=== PATIENT | female | born 1930 | race Caucasian/White ===

== ENCOUNTER 2019-04-16 12:36 | Inpatient (IN) | payer MEDICARE ==
[~2019-04-16] VITALS: Ht 154.9 cm; Wt 53.4 kg
[2019-04-16 14:05] VITALS: BP 154/79
[2019-04-16 15:11] LABS: BASO # 0.1 10^3/uL (0.0-0.2); BASO % 0.6 % (0.0-1.0); EOS % 0.2 % (0.0-3.0); HEMATOCRIT 38.5 % (36.0-47.0); HEMOGLOBIN 12.4 g/dl (12.0-15.5); LYMPH # 1.3 10^3/uL (1.5-5.0); MEAN CORPUSCULAR HEMOGLOBIN 30.5 pg (27.0-33.0); MEAN CORPUSCULAR HGB CONC 32.2 g/dl (32.0-36.5); MEAN CORPUSCULAR VOLUME 94.6 fl (80.0-96.0); MONO # 0.8 10^3/uL (0.0-0.8); MONO % 9.4 % (0.0-5.0); NEUTROPHILS # 6.5 10^3/uL (1.5-8.5); NEUTROPHILS % 74.5 % (36.0-66.0); PLATELET COUNT, AUTOMATED 353 10^3/uL (150-450); RED BLOOD COUNT 4.07 10^6/uL (4.00-5.40); WHITE BLOOD COUNT 8.7 10^3/uL (4.0-10.0)
[2019-04-16] MEDS ORDERED: VITA500C24 PO (15:12)
[2019-04-16] MEDS ORDERED: LOSA50TA88 PO (15:12)
[2019-04-16] MEDS ORDERED: METO50TA7 PO (15:12)
[2019-04-16] MEDS ORDERED: SYNT75TA PO (15:12)
[2019-04-16] MEDS ORDERED: SERT50TA29 PO (15:12)
[2019-04-16] MEDS ORDERED: SERT-141 PO (15:12)
[2019-04-16] MEDS ORDERED: TRIA37.53 PO (15:12)
[2019-04-16] MEDS ORDERED: NS 1,000 ML IV ONE (15:15)
--- NOTE | 2019-04-16 15:29 | HPEPDOC ---
General Date of Admission Apr 16, 2019 at 13:52 Date of Service: Apr 16, 2019 Chief Complaint The patient is a 88-year-old female admitted with a reason for visit of Acute Kidney Injury. Source: Patient, Family, RN/MD Exam Limitations: No limitations Timing/Duration: Getting worse Associated Symptoms: Loss of appetite, Malaise, Weakness History of Present Illness Patient is an 88 year old female transferred from [facility] ED, directly admitted per Dr. Barcenas. Pt is unable to provide the history due to some confusion and gives her sons permission to do so. She has felt unwell x 1 month. She has felt progressive general weakness and loss of appetite. Pt has also had some diarrhea on and off during this time; sometimes the stool is formed and other times it is watery. She has never had a colonoscopy. She denied abdominal pain. Son also noticed very little urine output from the pt. She had a CT with contrast of the abdomen and pelvis on Sunday due to the above Sx. She vomited in the evening after the CT. At 11pm last night she felt more unwell, worsening lethargy and confusion per her son. Son had to convince her to go to the ED today. While in the [facility] ED she had a CT w/out contrast which showed a right- sided obstructive uropathy, intestinal edema and fluid accumulation. She was also noted to have a Cr of 3.7 and elevated liver enzymes. ER doctor at [facility] spoke with Dr. Barcenas at [facility] who directly admitted the patient. Confirmed DNR/DNI with pt sons and they will provide the hospital with a copy of the MOLST form. Home Medications Scheduled Ascorbic Acid (Vitamin C) 500 Mg Capsule, 500 MG PO DAILY, (Reported) Levothyroxine Sodium (Synthroid) 75 Mcg Tablet, 75 MCG PO DAILY, (Reported) Magnesium Oxide (Magnesium Oxide) 400 Mg Tablet, 400 MG PO BID Metoprolol Tartrate (Metoprolol Tartrate) 50 Mg Tablet, 50 MG PO BID, (Reported) Potassium Chloride (Klor-Con M10) 10 Meq Tab.er.prt, 20 MEQ PO DAILY Sertraline HCl (Sertraline HCl) 50 Mg Tablet, 25 MG PO QHS, (Reported) Sertraline Hcl (Sertraline HCl) 50 Mg Tablet, 50 MG PO DAILY, (Reported) Allergies Coded Allergies: No Known Drug Allergies (Verified Allergy, Unknown, 04/16/19) Past Medical History Medical History HTN Depression Hypothyroidism Surgical History Cholecystectomy ARCHIE Left Nephrectomy Family History Significant Family History: Noncontributory Social History * Smoker: former Smoker (quit 25 years ago; 1PPD) Alcohol: Denies Drugs: denies Recent Travel/Sick Contacts: Denies: Recent travel A-FIB/[facility] A-FIB History Current/History of A-Fib/PAF?: No Current PO Anticoag Therapy: No Review of Systems Constitutional: Reports: Malaise, Weakness, Fatigue, Lethargy; Denies: Chills, Fever, Night Sweats Eyes: Denies: Pain ENT: Denies: Head Aches Skin: Denies: Rash Pulmonary: Denies: Dyspnea, Cough Cardiovascular: Denies: Chest Pain, Palpitations, Orthopnea, Lt Headedness Gastrointestinal: Reports: Nausea, Vomiting, Diarrhea; Denies: Abdominal Pain Genitourinary: Denies: Dysuria Musculoskeletal: Denies: Neck Pain, Back Pain, Joint Pain, Muscle Pain, Spasms Neurological: Reports: Confusion Psych: Reports: Mood Normal Physical Examination General Exam: Positive: Alert, Cooperative, No Acute Distress Eye Exam: Positive: Conjunctiva & lids normal; Negative: EOMI (6th nerve palsy) ENT Exam: Positive: Atraumatic, Pharynx Normal; Negative: Mucous membr. moist/pink (mucus membranes dry) Neck Exam: Positive: Supple; Negative: thyromegaly Chest Exam: Positive: Clear to auscultation, Normal air movement Heart Exam: Positive: Rate Normal, Murmurs (2/6 SM S1/S2 intact) Abdomen Exam: Positive: Normal bowel sounds, Soft, Hernia (RLQ) Extremity Exam: Negative: Clubbing, Cyanosis, Edema, Swelling Skin Exam: Positive: Nl turgor and temperature Neuro Exam: Positive: Normal Speech Psych Exam: Positive: Mood NL Vital Signs Vital Signs Date Time Temp Pulse Resp B/P (MAP) Pulse Ox O2 Delivery O2 Flow Rate FiO2 04/16/19 14:05 97.6 71 18 154/79 (104) 97 Room Air Laboratory Data Labs 24H Laboratory Tests 2 04/16/19 14:43: Immature Granulocyte % (Auto) 0.3, Neutrophils (%) (Auto) 74.5H, Lymphocytes (%) (Auto) 15.0L, Monocytes (%) (Auto) 9.4H, Eosinophils (%) (Auto) 0.2, Basophils (%) (Auto) 0.6, Neutrophils # (Auto) 6.5, Lymphocytes # (Auto) 1.3L, Monocytes # (Auto) 0.8, Eosinophils # (Auto) 0.0, Basophils # (Auto) 0.1, Nucleated Red Blood Cells % (auto) 0.0 CBC/BMP Laboratory Tests 04/16/19 14:43 Assessment/Plan Patient is an 88 year old female transferred from [facility] ED, directly admitted per Dr. Barcenas. Pt has a PMHx of HTN, solitary right kidney, Anxiety, hypothyroidism. 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 Pt is unable to provide the history due to some confusion and gives her sons permission to do so. She has felt unwell x 1 month. She has felt weakness and loss of appetite which has been worsening. Pt has also had diarrhea ongoing during this time; sometimes the stool is formed and other times it is watery. She has never had a colonoscopy. Pt also had very little urine output progressively worsening per her son. A CT with contrast of the abdomen and pelvis done on Sunday due to the above Sx. She vomited after the CT. At 11pm last night she became sick, worsening lethargy and confusion. Son had to c onvince her to go to the ED today. While in the [facility] ED she had a CT w/out contrast. Per Dr. Greenberg ([facility]): no CT visualized on this CT or CT on Sunday. Findings 04/16 "findings suggest obstruction of the right kidney at the level of the proximal right ureter and urologic consult suggested. Worsening inflammatory changes throughout the abdomen, pelvis with increasing free-fluid about the spleen. Wall thickening and inflammatory bowel disease is not excluded especially of the stomach and clinical correlation is advised for further eval. and mgmt." She was also noted to have a Cr of 3.7. Dr. Greenberg spoke with Dr. Barcenas at [facility] who directly admitted the patient. From the EMR, pt had an appointment with urology on 04/10 due to worsening hydronephrosis per CT 04/01/19. She was to be scheduled to have an urgent CT urogram to assess etiology. Cr. was 0.8 at that visit. Since being admitted to [facility], she has received fluid hydration. Repeat CMP showed Cr of 3.68. Pt catheterized with 200cc urine output. 1)Acute Kidney injury - stent placed in 2015 at [facility] [place] - possibly secondary to obstructive uropathy in a solitary kidney, IV contrast on Sunday and dehydration due to poor PO intake , intermittent diarrhea. - consult with nephrology & urology - Dr. Gautam will consult with Dr. Lockwood - Rocephin 1g given prophylactic - Cr. 3.68 - aggressive IV fluid replacement - pain control prn 2) Solitary kidney with obstructive uropathy - Dr. Luke consulted; will assess pt for possible stenting, requested pt is NPO after midnight - strict monitoring of I&O overnight - voided 200 cc with catheterization 3)HTN - Continue Metoprolol - Hold JONAS-I and HCTZ 4)Hypothyroidism - continue Synthroid 5) Anxiety - continue Zoloft 6) Elevated lipase - Amylase 120, Lipase 685 - no evidence of pancreatitis on CT w/out contrast abdomen - possibly 2/2 to ARF, poor PO intake x 1 month, ?HCTZ contributory - re-check Amylase & Lipase following appropriate hydration 7) Diarrhea, persistent - GI panel pending Plan / VTE VTE Prophylaxis Ordered?: Yes (Heparin ) Plan Diet: Make NPO (after midnight ) Activity: Bedrest Attending Note I have personally performed a face to face diagnostic evaluation on this patient. I have reviewed and agree with the care plan documented above. CATERINA FRANCOIS PA-C Apr 16, 2019 15:29 EDWARD GAUTAM MD Apr 23, 2019 06:18
[2019-04-16 15:36] LABS: ALBUMIN 3.2 GM/DL (3.2-5.2); BILIRUBIN,TOTAL 0.7 MG/DL (0.2-1.0); CALCIUM LEVEL 9.7 MG/DL (8.8-10.2); CREATININE FOR GFR 3.68 MG/DL (0.55-1.30); GLOMERULAR FILTRATION RATE 12.4 (>32); POTASSIUM SERUM 4.5 MEQ/L (3.5-5.1); TOTAL PROTEIN 6.5 GM/DL (6.4-8.2)
[2019-04-16 16:20] LABS: BILIRUBIN,DIRECT 0.3 MG/DL (0.0-0.2)
[2019-04-16] MEDS ORDERED: SODIUM CHLORIDE 0.9% 1000ML IV ONE (17:30)
[2019-04-16] MEDS: NS 1,000 ML IV SCH ×2 (17:45→20:19)
[2019-04-16] MEDS: cefTRIAXone SOD 1 GM in D5W MINI-BAG PLUS 50 ML IV SCH (17:54)
[2019-04-16] MEDS: HEPARIN SOD (PORCINE) 5000 UNITS/ML VIAL SQ SCH (20:19)
[2019-04-16] MEDS: SERTRALINE HCL 25 MG TABLET PO SCH (20:19)
[2019-04-16] MEDS: METOPROLOL TART 50 MG TAB PO SCH (20:19)
[2019-04-16 22:00] VITALS: BP 156/78
[2019-04-17] MEDS: LEVOTHYROXINE 75MCG TABLET (0.075MG) PO SCH (05:58)
[2019-04-17] MEDS: NS 1,000 ML IV SCH (05:58)
[2019-04-17 06:00] VITALS: BP 159/79
[2019-04-17 06:11] LABS: BASO % 0.4 % (0.0-1.0); EOS # 0.1 10^3/uL (0.0-0.5); EOS % 0.7 % (0.0-3.0); HEMATOCRIT 36.9 % (36.0-47.0); HEMOGLOBIN 11.9 g/dl (12.0-15.5); LYMPH # 0.9 10^3/uL (1.5-5.0); MEAN CORPUSCULAR HEMOGLOBIN 30.4 pg (27.0-33.0); MEAN CORPUSCULAR HGB CONC 32.2 g/dl (32.0-36.5); MEAN CORPUSCULAR VOLUME 94.4 fl (80.0-96.0); MONO # 0.7 10^3/uL (0.0-0.8); MONO % 9.4 % (0.0-5.0); NEUTROPHILS # 5.5 10^3/uL (1.5-8.5); NEUTROPHILS % 76.1 % (36.0-66.0); PLATELET COUNT, AUTOMATED 317 10^3/uL (150-450); RED BLOOD COUNT 3.91 10^6/uL (4.00-5.40); WHITE BLOOD COUNT 7.2 10^3/uL (4.0-10.0)
[2019-04-17 06:31] LABS: CALCIUM LEVEL 9.1 MG/DL (8.8-10.2); CREATININE FOR GFR 3.35 MG/DL (0.55-1.30); GLOMERULAR FILTRATION RATE 13.8 (>32); POTASSIUM SERUM 4.2 MEQ/L (3.5-5.1)
[2019-04-17] MEDS: METOPROLOL TART 50 MG TAB PO SCH ×2 (08:36→20:10)
[2019-04-17] MEDS: SERTRALINE HCL 50 MG TAB PO SCH (08:37)
--- NOTE | 2019-04-17 10:58 | SMCUROLCON ---
Urology Consultation General Date of Consultation 04/17/19 Reason For Consultation This patient is seen for Acute Kidney Injury. History of Present Illness The patient is a 88-year-old F with a past medical history of Left nephrectomy who was transferred from an outside hospital. She has been feeling unwell recently with diarrhea and lethargy the past 1 month. She had a CT with contrast at outside hospital and then presented with ARF. She had a repeat non contrast CT which showed possible right sided hydronephrosis. Repeat CT is pending after dimas placement. She had a dimas placed with return of appx 300cc of urine and has had steady urine output for the past 24 hours. She has a prior history of right sided stones treated in 2003. No gross hematuria. No flank pain. Past Medical History Medical History htn, nephrolithasis, dementia Surgical Hstory left nephrectomy in 1959 Family History Significant Family History: No pertinent family hx Social History * Smoker: non-smoker Alcohol: Denies Medications Current Medications Current Medications Medications (Trade) Dose Ordered Sig/Domingo Route PRN Reason Start Time Stop Time Status Last Admin Dose Admin Ceftriaxone Sodium 1 gm/ Dextrose 50 ml @ 100 mls/hr Q24H IV 04/16/19 18:00 04/16/19 17:54 Heparin Sodium (Porcine) (Heparin) 5,000 units Q12H SQ 04/16/19 21:00 Hold 04/16/19 20:19 Home Med (Med Rec Complete!) ASDIRECTED XX 04/16/19 15:45 04/16/19 15:41 DC Levothyroxine Sodium (Synthroid) 75 mcg DAILY@0600 PO 04/17/19 06:00 04/17/19 05:58 Metoprolol Tartrate (Lopressor) 50 mg BID PO 04/16/19 21:00 04/17/19 08:36 Sertraline HCl (Zoloft) 25 mg QHS PO 04/16/19 21:00 04/16/19 20:19 Sertraline HCl (Zoloft) 50 mg DAILY PO 04/17/19 09:00 Sodium Chloride 1,000 ml @ 75 mls/hr [id number] IV 04/16/19 17:45 04/17/19 10:37 DC 04/17/19 05:58 Allergies Allergies: Coded Allergies: No Known Drug Allergies (Verified Allergy, Unknown, 04/16/19) Review of Systems Constitutional: Denies: Fever, Chills, Sweats, Weakness, Malaise, Other Physical Examination Male Exam: No: Normal Genital Exam, Lesions, Edema, Erythema, Tenderness, Discharge, Mass, Hernia, Normal Prostate, Normal Sphincter Tone Vital Signs/I&O Vital Signs Date Time Temp Pulse Resp B/P (MAP) Pulse Ox O2 Delivery O2 Flow Rate FiO2 04/17/19 08:36 71 159/79 04/17/19 06:00 98.3 19 97 Room Air I&O- Last 24 Hours up to 6 AM 04/17/19 06:00 Intake Total 1820 ml Output Total 550 ml Balance 1270 ml Laboratory Data 24H Labs Laboratory Tests 2 04/16/19 14:43: Immature Granulocyte % (Auto) 0.3, Neutrophils (%) (Auto) 74.5H, Lymphocytes (%) (Auto) 15.0L, Monocytes (%) (Auto) 9.4H, Eosinophils (%) (Auto) 0.2, Basophils (%) (Auto) 0.6, Neutrophils # (Auto) 6.5, Lymphocytes # (Auto) 1.3L, Monocytes # (Auto) 0.8, Eosinophils # (Auto) 0.0, Basophils # (Auto) 0.1, Nucleated Red Blood Cells % (auto) 0.0, Anion Gap 14, Glomerular Filtration Rate 12.4L, Calcium Level 9.7, Total Bilirubin 0.7, Direct Bilirubin 0.3H, Aspartate Amino Transf (AST/SGOT) 18, Alanine Aminotransferase (ALT/SGPT) 15, Alkaline Phosphatase 91, Total Protein 6.5, Albumin 3.2, Albumin/Globulin Ratio 0.97L 04/16/19 16:06: Urine Color YELLOW, Urine Appearance CLEAR, Urine pH 5.0, Urine Specific [place] 1.019, Urine Protein NEGATIVE, Urine Glucose (UA) NEGATIVE, Urine Ketones NEGATIVE, Urine Blood 3+H, Urine Nitrite NEGATIVE, Urine Bilirubin NEGATIVE, Urine Urobilinogen 0.2, Urine Leukocyte Esterase 1+H, Urine WBC (Auto) 16H, Urine RBC (Auto) 59H, Urine Hyaline Casts (Auto) 0, Urine Bacteria (Auto) 1+H, Urine Squamous Epithelial Cells 3, Urine Amorphous Sediment SMALLH, Urine Sperm (Auto) 04/17/19 05:50: Immature Granulocyte % (Auto) 0.4, Neutrophils (%) (Auto) 76.1H, Lymphocytes (%) (Auto) 13.0L, Monocytes (%) (Auto) 9.4H, Eosinophils (%) (Auto) 0.7, Basophils (%) (Auto) 0.4, Neutrophils # (Auto) 5.5, Lymphocytes # (Auto) 0.9L, Monocytes # (Auto) 0.7, Eosinophils # (Auto) 0.1, Basophils # (Auto) 0.0, Nucleated Red Blood Cells % (auto) 0.0, Anion Gap 10, Glomerular Filtration Rate 13.8L, Calcium Level 9.1 CBC/BMP Laboratory Tests 04/16/19 14:43 04/17/19 05:50 Microbiology Microbiology 04/16/19 Urine Culture, Received Pending Plan 88 year old F with JAMIA, solitary kidney, ?hydronephrosis creatinine trending down with adequate urine output, ?due to obstructive uropathy Had a lengthy discussion with both sons regarding ureteral stent now vs watchful waiting since creatinine has trended down with good urine output. Sons would like watchful waiting. Would recommend repeat non contrast CT. Depending on creatinine/urine output tomorrow, may take to OR for Cysto/Stent placement. Diet now, NPO p MN. Dr Lacho [facility] [phone] LACHO LUKE M.D. Apr 17, 2019 10:58
--- NOTE | 2019-04-17 11:26 | REP ---
Clinical: Abdominal pain with nausea and vomiting. Technique: Axial noncontrast images from the lung bases to the pubic symphysis with coronal and sagittal re-formations. Comparison: None available. Findings: The patient is noted to be status post left nephrectomy. The right kidney is enlarged and demonstrates enhancement from presumed recent prior contrast enhanced examination. The kidney also demonstrates a significantly striated nephrogram pattern along with hydronephrosis and proximal hydroureter. These findings require correlation and are consistent with acute pyelonephritis and significantly poor function as well as suspected element of proximal ureteral obstruction (possible congenital UPJ obstruction). A moderate amount of ascites is appreciated throughout the abdomen and pelvis along with mesenteric adenopathy and mesenteric infiltration. These findings are nonspecific although sepsis cannot be excluded. There is evidence for suspected pneumobilia and prior cholecystectomy. Spleen, pancreas, and bilateral adrenal glands are relatively normal. The enteric system is without obstruction. Colonic and sigmoid diverticulosis noted. Moderate fat containing periumbilical hernia measures approximately 7.0 x 2.6 x 4.8 cm with a peritoneal defect of approximately 4.3 cm diameter. Pelvis demonstrates Encinas catheter in collapsed bladder and chronic myomatous changes to the uterus with calcified fibroids identified. No obvious free air. Atherosclerotic changes of the aorta and vasculature noted. Skeletal structures demonstrate osteopenia and degenerative changes along with left hip prosthesis. Small left pleural effusion and left basilar atelectasis noted. Impression: 1. Findings related to the right kidney as described above along with ascites and mesenteric stranding. Diagnosis includes pyelonephritis and sepsis. Right-sided hydronephrosis and proximal hydroureter may represent acute versus chronic change including possible UPJ obstruction. 2. Presumed to pneumobilia. 3. Small left pleural effusion and basilar atelectasis. 4. Further presumed chronic findings as described above. Electronically Signed by Zhang Ledesma MD 04/17/2019 11:19 A
[2019-04-17 14:00] VITALS: BP 176/89
--- NOTE | 2019-04-17 15:10 | IPNPDOC ---
Subjective Date Seen The patient was seen on 04/17/19. Subjective Chief Complaint/HPI Patient is an 88 year old female transferred from [facility] ED, directly admitted per Dr. Barcenas. Pt appears more confused than she did on admission and gives her sons permission to provide her Hx. She denied any new or worsening symptoms today. Pt sons arrived and we had a long discussion about urology consult earlier. They are satisfied with Dr. Luke's approach of watchful waiting over the next 24 hours due to Ms. Marroquin's age and her not being at her baseline at this time. They are able to relay the conversation they had with urology demonstrating they are making informed decisions on their mother's behalf. General: Reports: ROS Unobtainable Objective Physical Examination General Exam: Positive: Alert, Cooperative, No Acute Distress Eye Exam: Positive: Conjunctiva & lids normal, EOMI (6th nerve palsy) ENT Exam: Positive: Atraumatic, Pharynx Normal; Negative: Mucous membr. moist/pink (mucus membranes dry) Neck Exam: Positive: Supple; Negative: thyromegaly Chest Exam: Positive: Clear to auscultation, Normal air movement Heart Exam: Positive: Rate Normal, Murmurs (2/6 SM S1/S2 intact) Abdomen Exam: Positive: Normal bowel sounds, Soft, Hernia (RLQ) Extremity Exam: Negative: Clubbing, Cyanosis, Edema, Swelling Skin Exam: Positive: Nl turgor and temperature Neuro Exam: Positive: Normal Speech Psych Exam: Positive: Mood NL Assessment /Plan Assessment Patient is an 88 year old female transferred from [facility] ED, directly admitted per Dr. Barcenas. Pt has a PMHx of HTN, solitary right kidney, Anxiety, hypothyroidism. 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 Pt is unable to provide the history due to some confusion and gives her sons permission to do so. She has felt unwell x 1 month. She has felt weakness and loss of appetite which has been worsening. Pt has also had diarrhea ongoing during this time; sometimes the stool is formed and other times it is watery. She has never had a colonoscopy. Pt also had very little urine output progressively worsening per her son. A CT with contrast of the abdomen and pelvis done on Sunday due to the above Sx. She vomited after the CT. At 11pm last night she became sick, worsening lethargy and confusion. Son had to convince her to go to the ED today. While in the [facility] ED she had a CT w/out contrast. Per Dr. Greenberg ([place]): no CT visualized on this CT or CT on Sunday. Findings 04/16 "findings suggest obstruction of the right kidney at the level of the proximal right ureter and urologic consult suggested. Worsening inflammatory changes throughout the abdo men, pelvis with increasing free-fluid about the spleen. Wall thickening and inflammatory bowel disease is not excluded especially of the stomach and clinical correlation is advised for further eval. and mgmt." She was also noted to have a Cr of 3.7. Dr. Greenberg spoke with Dr. Barcenas at [facility] who directly admitted the patient. From the EMR, pt had an appointment with urology on 04/10 due to worsening hydronephrosis per CT 04/01/19. She was to be scheduled to have an urgent CT urogram to assess etiology. Cr. was 0.8 at that visit. Since being admitted to [facility], she has received fluid hydration. Repeat CMP showed Cr of 3.68. Pt catheterized with 200cc urine output. 1)Acute kidney injury - secondary to obstruction, IV contrast on Sunday and dehydration due to poor PO intake - H/o stent placement in 2015 at [facility] [place] per medical records - consult with nephrology & urology - Dr. Gautam will consult with Dr. Lockwood - Unrulyepcherelle 1g given prophylactic - Cr. 3.35 - Had IV fluid replacement. d/c today d/t volume overload, encourage PO intake - pain control prn . No NSAIDS - Hold JONAS-I and HCTZ 2) Solitary kidney with obstructive uropathy - Dr. Luke consulted; will assess pt for possible stenting, requested pt is NPO after midnight - strict monitoring of I&O overnight - voided 200 cc with catheterization - after consultation, sons decided they would like to wait overnight to see if their mother continues to improve and void urine, then reassess with urology in the morning. They are fully aware that she may end up requiring a stent. - returned to regular diet; NPO again after midnight 3)HTN - Continue Metoprolol - Hold JONAS-I and HCTZ 4)Hypothyroidism - continue Synthroid 5) Anxiety - continue Zoloft 6) Elevated Lipase - no evidence of pancreatitis on CT abdomen w/out contrast - possibly 2/2 to ARF, poor PO intake x 1 month, 7) Diarrhea, persistent - GI panel pending Plan/VTE VTE Prophylaxis Ordered?: Yes (Heparin ) VS, I&O, 24H, Fishbone Vital Signs/I&O Vital Signs Date Time Temp Pulse Resp B/P (MAP) Pulse Ox O2 Delivery O2 Flow Rate FiO2 04/17/19 08:36 71 159/79 04/17/19 06:00 98.3 19 97 Room Air I&O- Last 24 Hours up to 6 AM 04/17/19 06:00 Intake Total 1820 ml Output Total 550 ml Balance 1270 ml Laboratory Data 24H LABS Laboratory Tests 2 04/16/19 16:06: Urine Color YELLOW, Urine Appearance CLEAR, Urine pH 5.0, Urine Specific [place] 1.019, Urine Protein NEGATIVE, Urine Glucose (UA) NEGATIVE, Urine Ketones NEGATIVE, Urine Blood 3+H, Urine Nitrite NEGATIVE, Urine Bilirubin NEGATIVE, Urine Urobilinogen 0.2, Urine Leukocyte Esterase 1+H, Urine WBC (Auto) 16H, Urine RBC (Auto) 59H, Urine Hyaline Casts (Auto) 0, Urine Bacteria (Auto) 1+H, Urine Squamous Epithelial Cells 3, Urine Amorphous Sediment SMALLH, Urine Sperm (Auto) 04/17/19 05:50: Immature Granulocyte % (Auto) 0.4, Neutrophils (%) (Auto) 76.1H, Lymphocytes (%) (Auto) 13.0L, Monocytes (%) (Auto) 9.4H, Eosinophils (%) (Auto) 0.7, Basophils (%) (Auto) 0.4, Neutrophils # (Auto) 5.5, Lymphocytes # (Auto) 0.9L, Monocytes # (Auto) 0.7, Eosinophils # (Auto) 0.1, Basophils # (Auto) 0.0, Nucleated Red Blood Cells % (auto) 0.0, Anion Gap 10, Glomerular Filtration Rate 13.8L, Calcium Level 9.1 CBC/BMP Laboratory Tests 04/17/19 05:50 Microbiology Microbiology 04/16/19 Urine Culture, Received Pending Attending Note I have personally performed a face to face diagnostic evaluation on this patient. I have reviewed and agree with the care plan documented above. CATERINA FRANCOIS PA-C Apr 17, 2019 15:10 EDWARD GAUTAM MD Apr 23, 2019 12:03
[2019-04-17] MEDS: cefTRIAXone SOD 1 GM in D5W MINI-BAG PLUS 50 ML IV SCH (18:15)
[2019-04-17] MEDS: SERTRALINE HCL 25 MG TABLET PO SCH (20:10)
[2019-04-17] MEDS: HEPARIN SOD (PORCINE) 5000 UNITS/ML VIAL SQ SCH (20:10)
[2019-04-17] MEDS ORDERED: VANCOMYCIN HCL 1,000 MG, VIAL MATE ADAPTER 1 EACH in D5W 250 ML IV ONE (21:00)
[2019-04-17 22:00] VITALS: BP 140/63
[2019-04-18] VITALS (9 sets, daily range): BP systolic 124–164; BP diastolic 59–69
[2019-04-18 06:03] LABS: BASO # 0.1 10^3/uL (0.0-0.2); BASO % 0.7 % (0.0-1.0); EOS # 0.1 10^3/uL (0.0-0.5); EOS % 1.3 % (0.0-3.0); HEMATOCRIT 38.4 % (36.0-47.0); HEMOGLOBIN 12.4 g/dl (12.0-15.5); LYMPH % 11.5 % (24.0-44.0); MEAN CORPUSCULAR HEMOGLOBIN 30.5 pg (27.0-33.0); MEAN CORPUSCULAR HGB CONC 32.3 g/dl (32.0-36.5); MEAN CORPUSCULAR VOLUME 94.6 fl (80.0-96.0); MONO # 0.8 10^3/uL (0.0-0.8); MONO % 8.9 % (0.0-5.0); NEUTROPHILS # 6.9 10^3/uL (1.5-8.5); NEUTROPHILS % 77.2 % (36.0-66.0); PLATELET COUNT, AUTOMATED 328 10^3/uL (150-450); RED BLOOD COUNT 4.06 10^6/uL (4.00-5.40); WHITE BLOOD COUNT 8.9 10^3/uL (4.0-10.0)
[2019-04-18] MEDS: LEVOTHYROXINE 75MCG TABLET (0.075MG) PO SCH (06:05)
[2019-04-18 06:21] LABS: CALCIUM LEVEL 9.3 MG/DL (8.8-10.2); CREATININE FOR GFR 3.85 MG/DL (0.55-1.30); GLOMERULAR FILTRATION RATE 11.7 (>32); POTASSIUM SERUM 3.9 MEQ/L (3.5-5.1)
[2019-04-18] MEDS: SERTRALINE HCL 50 MG TAB PO SCH (09:00)
[2019-04-18] MEDS: HEPARIN SOD (PORCINE) 5000 UNITS/ML VIAL SQ SCH ×2 (09:00→20:18)
[2019-04-18] MEDS: METOPROLOL TART 50 MG TAB PO SCH ×2 (09:07→20:18)
[2019-04-18] MEDS ORDERED: PROPOFOL 200 MG/20 ML VIAL As Ordered ONE (10:42)
[2019-04-18] MEDS ORDERED: ONDANSETRON 4MG/2ML VIAL (J2405) As Ordered ONE (10:43)
[2019-04-18] MEDS ORDERED: LIDOCAINE 2% INJ 100 MG/5 ML SDV (FOR ANES.) As Ordered ONE (10:43)
--- NOTE | 2019-04-18 10:52 | IPNPDOC ---
Subjective Review oF Systems Chief Complaint The patient is a 88-year-old female admitted with a reason for visit of Acute Kidney Injury. Objective Physical Examination Heart Exam: Positive: Rate Normal, Murmurs (2/6 SM S1/S2 intact) Vital Signs/I&O Vital Signs Date Time Temp Pulse Resp B/P (MAP) Pulse Ox O2 Delivery O2 Flow Rate FiO2 04/18/19 09:07 79 142/64 04/18/19 06:00 97.9 17 93 Room Air I&O- Last 24 Hours up to 6 AM 04/18/19 05:59 Intake Total 900 ml Output Total 400 ml Balance 500 ml Laboratory Data Labs 24H Laboratory Tests 2 04/18/19 05:44: Immature Granulocyte % (Auto) 0.4, Neutrophils (%) (Auto) 77.2H, Lymphocytes (%) (Auto) 11.5L, Monocytes (%) (Auto) 8.9H, Eosinophils (%) (Auto) 1.3, Basophils (%) (Auto) 0.7, Neutrophils # (Auto) 6.9, Lymphocytes # (Auto) 1.0L, Monocytes # (Auto) 0.8, Eosinophils # (Auto) 0.1, Basophils # (Auto) 0.1, Nucleated Red Blood Cells % (auto) 0.0, Anion Gap 13, Glomerular Filtration Rate 11.7L, Calcium Level 9.3 CBC/BMP Laboratory Tests 04/18/19 05:44 Microbiology Microbiology 04/17/19 Blood Culture, Received Pending 04/16/19 Urine Culture - Final, Complete Escherichia Coli Assessment/Plan Date Seen The patient was seen on 04/18/19. Plan/VTE VTE Prophylaxis Ordered?: Yes (Heparin ) Plan Creatinine up to 3.8. Reviewed CT- Has retained contrast in kidney and evidence of hydronephrosis and hydroureter. Also with stranding consistent with pyelo. Ucx growing ESBL- discussed with primary team for antibiotic plan. Had lengthy discussion with sons/patient at bedside. Will proceed with cystoscopy with right ureteral stenting today in setting of obstruction and rising creatinine. Diet: Continue Current ANDREY ISABEL M.D. Apr 18, 2019 10:52
[2019-04-18] MEDS ORDERED: LIDOCAINE 2% 5ML JELLY UROJET As Ordered ONE (11:25)
[2019-04-18] MEDS ORDERED: ACETAMINOPHEN 1000MG 100ML IV BTL (OFIRMEV) (J0131 PER 10MG) As Ordered ONE (11:41)
--- NOTE | 2019-04-18 11:52 | ROOPDOC ---
[facility] Report Of Operation Report of Operation DATE OF PROCEDURE: 04/18/19 PREPROCEDURE DIAGNOSES: [right hydronephrosis, JAMIA]. POSTPROCEDURE DIAGNOSES: [same]. PROCEDURE: [Cystoscopy, right retrograde pyelogram, right ureteral stent placement]. SURGEON: [Andrey Isabel], AUTOMOTIVE SERVICE MANAGEMENT TEACHER: [none], ANESTHESIA: [MAC with local]. ESTIMATED BLOOD LOSS: Approximately [0] mL. COMPLICATIONS: [none ]. ANDREY ISABEL M.D. Apr 18, 2019 11:52
--- NOTE | 2019-04-18 11:53 | CR ---
DATE OF CONSULTATION: 04/17/2019 CONSULTATION REPORT FOR: Dr. Vicki Gautam CONSULTING PHYSICIAN: Dr. Katia Lockwood REASON FOR CONSULTATION: Nonoliguric acute renal failure in this patient with solitary kidney. CHIEF COMPLAINT: Nausea, vomiting and generalized malaise. HISTORY OF PRESENT ILLNESS: Florecita Marroquin is previously unknown to me. She is an 88-year-old female with a past medical history of solitary right kidney, hypertension, history of nephrolithiasis, Graves disease, anxiety. The patient had a left nephrectomy in the remote past when she was in her late 20s. History is obtained from chart review and from discussion with her two sons at the bedside. The patient lives alone and was apparently feeling poorly over the past couple of weeks. She was having decreased appetite, weakness, nausea, vomiting, and mild diarrhea. She had a CT with IV contrast on Sunday. The results of which are not available to me at present. Her symptoms persisted and she returned to the emergency room at [facility] and had a repeat CT scan on 04/16/2019, this time without contrast and that CT scan showed "obstruction of the right kidney at the level of the proximal right ureter, worsening inflammatory changes throughout abdomen and pelvis with increasing free fluid around the spleen, wall thickening and inflammatory bowel disease is not excluded." At [facility], she was noted to have a creatinine of 3.7 and she was subsequently transferred to [facility] for further evaluation and management. The patient had a Encinas catheter placed and she was started on IV fluids. Her creatinine marginally improved from 3.7 to 3.6 to 3.3. She is pending urologic evaluation. The patient is seen and examined this morning at the bedside. She complains of ongoing poor appetite and nausea. She denies any chest pain or shortness of breath. PAST MEDICAL AND PAST SURGICAL HISTORY: 1. Hypertension. 2. Solitary right kidney. 3. Depression. 4. Hypothyroidism status post cholecystectomy. 5. History of nephrolithiasis requiring urologic intervention in the past. 6. Left hip replacement. 7. Periumbilical hernia. ALLERGIES: No known drug allergies. HOME MEDICATIONS: - hydrochlorothiazide - triamterene - ascorbic acid - Synthroid 75 mcg by mouth daily - losartan 50 mg by mouth daily - metoprolol 50 mg by mouth twice a day - sertraline 50 mg in the morning and 25 mg in the evening FAMILY HISTORY: The patient denies a family history of end-stage renal disease. SOCIAL HISTORY: She has four son. She lives alone. She is an ex-smoker. There is no alcohol or drug use reported. REVIEW OF SYSTEMS: CONSTITUTIONAL: The patient reports generalized malaise, weakness, fatigue and lethargy. She denies fevers or chills. EYES: She denies visual changes or tearing. EARS, NOSE AND THROAT (ENT): She denies rhinorrhea or odynophagia. CARDIAC: She denies chest pain or palpitations or leg edema. PULMONARY: She denies shortness of breath or cough. GASTROINTESTINAL: She reports nausea, vomiting, diarrhea. GENITOURINARY: She reports decreased urine output. She denies dysuria or hematuria. SKIN: She denies any new rashes or pruritus. MUSCULOSKELETAL: She has a history of left hip replacement. She denies any acute gout or myalgias. NEUROLOGIC: She denies seizure or syncope. PSYCHIATRIC: She has a history of depression. ENDOCRINE: She has a history of hypothyroidism. Denies a history of diabetes. HEMATOLOGIC: Denies easy bleeding or bruising. Remainder of review of systems is negative or as per history of present illness (HPI). VITAL SIGNS: Temperature 96.7, pulse 68, respiratory rate 18, blood pressure 159/79, saturating 97% on room air. Intake yesterday was 1.8 liters, urine output thus far today is 600 mL. Weight in the bed scale today is not recorded. GENERAL: The patient is seen awake and alert. Family present at the bedside. She is interactive and conversational, cooperative with physical examination, answers simple questions appropriately, is oriented to person and place. Extraocular muscles are intact. Tongue is dry. Neck is supple. Jugular veins are not elevated. CARDIAC: S1, S2, regular rate and rhythm. No edema in the extremities. LUNGS: Clear to auscultation bilaterally. No crackle, rale or rhonchus. ABDOMEN: Soft. There is a hernia present in the right lower quadrant. There are bowel sounds. GENITOURINARY: Shows Encinas catheter with yellow urine. SKIN: Normal turgor and temperature. NEUROLOGIC: Interactive, conversational, cooperates with physical examination, oriented to person and place. LABORATORY DATA: Sodium 137, potassium 4.2, bicarbonate 18, BUN 51, creatinine 3.3, lipase 650. White count 7.2, hemoglobin 11.9. Urinalysis shows bacteria and WBCs and blood. Urine culture is pending. CT scan noncontrast 04/17/2019 shows status post left nephrectomy, right kidney is enlarged and there is hydronephrosis and also proximal hydroureter. There is moderate ascites in the abdomen, mesenteric adenopathy and mesenteric infiltration, small left pleural effusions and basilar atelectasis. INPATIENT MEDICATIONS: - ceftriaxone 1 gram IV daily - heparin 5000 units subcutaneous every 12 hours - levothyroxine 75 mcg by mouth daily - metoprolol 50 mg by mouth twice a day - sertraline 25 mg in the evening and 50 mg in the morning PROBLEMS: 1. Nonoliguric acute renal failure in this patient with solitary right kidney with hydronephrosis and hydroureter, recent IV contrast administration (dye-induced nephropathy), and home medication including losartan and hydrochlorothiazide/triamterene in the setting of nausea, vomiting, diarrhea and poor oral intake. The patient has multifactorial etiology of her renal failure which includes the previously-mentioned (obstructive uropathy, contrast exposure, angiotensin-receptor rock, diuretic, poor oral intake). Her creatinine has only marginally improved with IV fluid and Encinas catheter placement. Creatinine has come down from 3.7 to 3.3 and urine output still appears rather poor. I ordered a noncontrast CT scan of the abdomen today and her kidney was still lighting up with the IV contrast that she received on Sunday. Hence, the contrast is still in her system. Her urine analysis and the CT scan are also suspicious for ongoing upper urinary tract infection. I feel that she will likely need urologic intervention for the obstruction, especially given that she has a solitary kidney. There is no urgent dialysis needs at present. Primary team has already stopped the IV fluids which I feel is reasonable given that she did receive around 2 liters already and we do not want to risk volume overload in the setting of renal failure. She has been discontinued off of all nephrotoxic drugs. Urine culture is pending and blood culture has been requested. Depending on her renal function tomorrow, urology will decide about any procedure. 2. Possible pyelonephritis. Urinalysis did have bacteria and white blood cells (WBCs). Her CT scan did show some mesenteric adenopathy and mesenteric infiltration. The patient reports a couple-week history of nausea and vomiting and intermittent diarrhea. Urine culture is pending. She is already on empiric ceftriaxone. Blood cultures have been added and I am also giving her 1 gram of vancomycin. There is no leukocytosis. There is no fever and she is hemodynamically stable. 3. Solitary kidney with hydronephrosis. As mentioned above, on the CT scan done today, there is a proximal hydroureter along with hydronephrosis and there is still contrast in her system. She is probably going to require urologic intervention. 4. Hypertension. Blood pressures are acceptable at present. She is on metoprolol 50 mg by mouth twice daily. Please keep her off of angiotensin-converting enzyme (JONAS), angiotensin-receptor rock (ARB) and diuretic. I would allow blood pressure up to systolic 150s in view of her age and renal failure. Thank you for involving me in the care of Ms. Marroquin. I will be happy to follow her along with you. Plan of care was discussed in detail with both of her sons at the bedside.
[2019-04-18] MEDS ORDERED: SODIUM BICARBONATE 150 MEQ in D5W 1,000 ML IV SCH (12:00)
[2019-04-18] MEDS ORDERED: ONDANSETRON 4MG/2ML VIAL (J2405) IV PRN (12:15)
[2019-04-18] MEDS ORDERED: fentaNYL 100 MCG/2 ML INJECTION (J3010) IV PRN (12:15)
[2019-04-18] MEDS ORDERED: PERCOCET 5MG/325MG TAB PO PRN (12:15)
[2019-04-18] MEDS ORDERED: LR 1,000 ML IV SCH (12:15)
[2019-04-18] MEDS ORDERED: METOCLOPRAMIDE INJ 10MG/2ML VIAL (J2765) IV PRN (12:15)
--- NOTE | 2019-04-18 12:23 | REP ---
Clinical: Acute renal failure. Hydronephrosis. Technique: Intraoperative fluoroscopic imaging. Findings: Spot fluoroscopic images demonstrate marked right renal hydronephrosis and ureteral stent extending into the renal pelvis. Total fluoroscopic time 17 seconds. Impression: Marked hydronephrosis with proximal ureteral stent in the renal pelvis. Electronically Signed by Zhang Ledesma MD 04/18/2019 12:15 P
[2019-04-18] MEDS ORDERED: CONRAY-60 60% 50ML VIAL (Q9961) As Ordered ONE (13:46)
--- NOTE | 2019-04-18 13:46 | IPNPDOC ---
Subjective Date Seen The patient was seen on 04/18/19. Subjective Chief Complaint/HPI No diarrhea today or yesterday. no fever or chills, no chest pain or sob. no abdominal pain , nausea or vomiting. Had right ureteric stent placed today. Objective Physical Examination General Exam: Positive: Alert, Cooperative, No Acute Distress Eye Exam: Positive: Conjunctiva & lids normal; Negative: EOMI (6th nerve palsy) ENT Exam: Positive: Atraumatic, Pharynx Normal; Negative: Mucous membr. moist/pink (mucus membranes dry) Neck Exam: Positive: Supple; Negative: thyromegaly Chest Exam: Positive: Clear to auscultation, Normal air movement Heart Exam: Positive: Rate Normal, Murmurs (2/6 SM S1/S2 intact) Abdomen Exam: Positive: Normal bowel sounds, Soft, Hernia (RLQ) Extremity Exam: Negative: Clubbing, Cyanosis, Edema, Swelling Skin Exam: Positive: Nl turgor and temperature Neuro Exam: Positive: Normal Speech Psych Exam: Positive: Mood NL Assessment /Plan Assessment Patient is an 88 year old female transferred from [facility] ED, directly admitted per Dr. Barcenas. Pt has a PMHx of HTN, Grave's Dz. neha tary right kidney with right hydronephrosis seen in CT about 1 week ago, Anxiety. 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 Pt is unable to provide the history due to some confusion and gives her sons permission to do so. She has felt unwell x 1 month. She has felt weakness and loss of appetite which has been worsening. Pt has also had diarrhea ongoing during this time; sometimes the stool is formed and other times it is watery. She has never had a colonoscopy. Pt also had very little urine output progressively worsening per her son. A CT with contrast of the abdomen and pelvis done on Sunday as per urology order and since then she has worsened further. She vomited after the CT. At 11pm last night she became sick, worsening lethargy and confusion. Son had to convince her to go to the ED today. While in the [facility] ED she had a CT w/out contrast. Per Dr. Greenberg ([place]): no CT visualized on this CT or CT on Sunday. Findings 04/16"findings suggest obstruction of the right kidney at the level of the proximal right ureter and urologic consult suggested. Worsening inflammatory changes throughout the abdomen, pelvis with increasing free-fluid about the spleen. Wall thickening and inflammatory bowel disease is not excluded especially of the stomach and clinical correlation is advised for further eval. and mgmt." She was also noted to have a Cr of 3.7. Patient was transferred to [facility] for further evaluation and management. From the EMR, pt had an appointment with urology on 04/10 due to worsening hydronephrosis per CT 04/01/19. She was to be scheduled to have an urgent CT urogram to assess etiology. Cr. was 0.8 at that visit. Since being admitted to [facility], she has received fluid hydration. Repeat CMP showed Cr of 3.68. Pt catheterized with 200cc urine output. Acute kidney injury due to obstructive uropathy, contrast nephropathy on the back ground of ARBS and diuretics. 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 Solitary kidney with obstructive uropathy s/p right ureteric stent. UTI Ecoli in culture, continue ceftriaxone. HTN Continue Metoprolol Hold JONAS-I and HCTZ Hypothyroid continue Synthroid Anxiety continue Zoloft Elevated lipase probably due to Acute renal failure. no evidence of pancreatitis in the CT abdomen. Diarrhea chronic every other day about 2 times/ day. No diarrhea today or yesteday. GI panel pending Plan/VTE VTE Prophylaxis Ordered?: Yes (Heparin ) Plan Diet: Continue Current VS, I&O, 24H, Fishbone Vital Signs/I&O Vital Signs Date Time Temp Pulse Resp B/P (MAP) Pulse Ox O2 Delivery O2 Flow Rate FiO2 04/18/19 12:21 98.4 60 16 149/62 (91) 96 Room Air I&O- Last 24 Hours up to 6 AM 04/18/19 06:00 Intake Total 900 ml Output Total 300 ml Balance 600 ml Laboratory Data 24H LABS Laboratory Tests 2 04/18/19 05:44: Immature Granulocyte % (Auto) 0.4, Neutrophils (%) (Auto) 77.2H, Lymphocytes (%) (Auto) 11.5L, Monocytes (%) (Auto) 8.9H, Eosinophils (%) (Auto) 1.3, Basophils (%) (Auto) 0.7, Neutrophils # (Auto) 6.9, Lymphocytes # (Auto) 1.0L, Monocytes # (Auto) 0.8, Eosinophils # (Auto) 0.1, Basophils # (Auto) 0.1, Nucleated Red Blood Cells % (auto) 0.0, Anion Gap 13, Glomerular Filtration Rate 11.7L, Calcium Level 9.3 CBC/BMP Laboratory Tests 04/18/19 05:44 Microbiology Microbiology 04/17/19 Blood Culture, Received Pending 04/16/19 Urine Culture - Final, Complete Escherichia Coli EDWARD MENJIVAR MD Apr 18, 2019 13:45
[2019-04-18] MEDS: cefTRIAXone SOD 1 GM in D5W MINI-BAG PLUS 50 ML IV SCH (17:34)
[2019-04-18] MEDS: SERTRALINE HCL 25 MG TABLET PO SCH (20:18)
[2019-04-19 02:00] VITALS: BP 157/67
[2019-04-19 06:00] VITALS: BP 144/70
[2019-04-19] MEDS: LEVOTHYROXINE 75MCG TABLET (0.075MG) PO SCH (06:01)
[2019-04-19 06:22] LABS: BASO % 0.6 % (0.0-1.0); EOS # 0.1 10^3/uL (0.0-0.5); EOS % 2.2 % (0.0-3.0); HEMATOCRIT 34.7 % (36.0-47.0); HEMOGLOBIN 11.5 g/dl (12.0-15.5); LYMPH % 16.6 % (24.0-44.0); MEAN CORPUSCULAR HEMOGLOBIN 30.6 pg (27.0-33.0); MEAN CORPUSCULAR HGB CONC 33.1 g/dl (32.0-36.5); MEAN CORPUSCULAR VOLUME 92.3 fl (80.0-96.0); MONO # 0.7 10^3/uL (0.0-0.8); MONO % 10.7 % (0.0-5.0); NEUTROPHILS # 4.3 10^3/uL (1.5-8.5); NEUTROPHILS % 69.6 % (36.0-66.0); PLATELET COUNT, AUTOMATED 309 10^3/uL (150-450); RED BLOOD COUNT 3.76 10^6/uL (4.00-5.40); WHITE BLOOD COUNT 6.3 10^3/uL (4.0-10.0)
[2019-04-19 06:43] LABS: CALCIUM LEVEL 8.8 MG/DL (8.8-10.2); CREATININE FOR GFR 2.41 MG/DL (0.55-1.30); GLOMERULAR FILTRATION RATE 20.1 (>32); POTASSIUM SERUM 2.9 MEQ/L (3.5-5.1)
[2019-04-19] MEDS ORDERED: POTASSIUM CHLORIDE 10 MEQ SR TABLET PO ONE (06:45)
[2019-04-19] MEDS ORDERED: SODIUM CHLORIDE 0.9% 1000ML IV ONE (06:45)
[2019-04-19] MEDS: HEPARIN SOD (PORCINE) 5000 UNITS/ML VIAL SQ SCH ×2 (08:12→20:27)
[2019-04-19] MEDS: SERTRALINE HCL 50 MG TAB PO SCH (08:12)
[2019-04-19] MEDS: METOPROLOL TART 50 MG TAB PO SCH ×2 (08:13→20:26)
--- NOTE | 2019-04-19 11:23 | IPNPDOC ---
Subjective Date Seen The patient was seen on 04/19/19. Subjective Chief Complaint/HPI Overall feeling better today. No nausea or vomiting did have loose stools yesterday. Good urine output. She tells me she may be able to eat a little breakfast. Objective Physical Examination General Exam: Positive: Alert, Cooperative, No Acute Distress Eye Exam: Positive: Conjunctiva & lids normal, EOMI (6th nerve palsy) ENT Exam: Positive: Atraumatic, Pharynx Normal; Negative: Mucous membr. moist/pink (mucus membranes dry) Neck Exam: Positive: Supple; Negative: thyromegaly Chest Exam: Positive: Clear to auscultation, Normal air movement Heart Exam: Positive: Rate Normal, Murmurs (2/6 SM S1/S2 intact) Abdomen Exam: Positive: Normal bowel sounds, Soft, Hernia (RLQ) Extremity Exam: Negative: Clubbing, Cyanosis, Edema, Swelling Skin Exam: Positive: Nl turgor and temperature Neuro Exam: Positive: Normal Speech Psych Exam: Positive: Mood NL Assessment /Plan Assessment Patient is an 88 year old female transferred from [facility] ED, directly admitted per Dr. Barcenas. Pt has a PMHx of HTN, Grave's Dz. solitary right kidney with right hydronephrosis seen in CT about 1 week ago, Anxiety. 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 Pt is unable to provide the history due to some confusion and gives her sons permission to do so. She has felt unwell x 1 month. She has felt weakness and loss of appetite which has been worsening. Pt has also had diarrhea ongoing during this time; sometimes the stool is formed and other times it is watery. She has never had a colonoscopy. Pt also had very little urine output progressively worsening per her son. A CT with contrast of the abdomen and p elizabeth done on Sunday as per urology order and since then she has worsened further. She vomited after the CT. At 11pm last night she became sick, worsening lethargy and confusion. Son had to convince her to go to the ED today. While in the [facility] ED she had a CT w/out contrast. Per Dr. Greenberg ([place]): no CT visualized on this CT or CT on Sunday. Findings 04/16"findings suggest obstruction of the right kidney at the level of the proximal right ureter and urologic consult suggested. Worsening inflammatory changes throughout the abdomen, pelvis with increasing free-fluid about the spleen. Wall thickening and inflammatory bowel disease is not excluded especially of the stomach and clinical correlation is advised for further eval. and mgmt." She was also noted to have a Cr of 3.7. Patient was transferred to [facility] for further evaluation and management. From the EMR, pt had an appointment with urology on 04/10 due to worsening hydronephrosis per CT 04/01/19. She was to be scheduled to have an urgent CT urogram to assess etiology. Cr. was 0.8 at that visit. Since being admitted to [facility], she has received fluid hydration. Repeat CMP showed Cr of 3.68. Pt catheterized with 200cc urine output. Acute kidney injury due to obstructive uropathy, contrast nephropathy on the back ground of ARBS and diuretics. S/P cysto and right ureteral stent placement on 04/18/19 Creatinine has improved significantly today. 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 Solitary kidney with obstructive uropathy s/p right ureteric stent. improving renal function. UTI Ecoli in culture, continue ceftriaxone. HTN Continue Metoprolol Hold JONAS-I and HCTZ Hypothyroid continue Synthroid Anxiety continue Zoloft Elevated lipase probably due to Acute renal failure. no evidence of pancreatitis in the CT abdomen. Diarrhea chronic every other day about 2 times/ day. No diarrhea today or yesterday. GI panel sent Plan/VTE VTE Prophylaxis Ordered?: Yes (Heparin ) Plan Diet: Continue Current VS, I&O, 24H, Fishbone Vital Signs/I&O Vital Signs Date Time Temp Pulse Resp B/P (MAP) Pulse Ox O2 Delivery O2 Flow Rate FiO2 04/19/19 08:13 70 152/72 04/19/19 06:00 98.3 16 92 Room Air I&O- Last 24 Hours up to 6 AM 04/19/19 06:00 Intake Total 955 ml Output Total 2925 ml Balance -1970 ml Laboratory Data 24H LABS Laboratory Tests 2 04/19/19 05:44: Immature Granulocyte % (Auto) 0.3, Neutrophils (%) (Auto) 69.6H, Lymphocytes (%) (Auto) 16.6L, Monocytes (%) (Auto) 10.7H, Eosinophils (%) (Auto) 2.2, Basophils (%) (Auto) 0.6, Neutrophils # (Auto) 4.3, Lymphocytes # (Auto) 1.0L, Monocytes # (Auto) 0.7, Eosinophils # (Auto) 0.1, Basophils # (Auto) 0.0, Nucleated Red Blood Cells % (auto) 0.0, Anion Gap 11, Glomerular Filtration Rate 20.1L, Calcium Level 8.8 CBC/BMP Laboratory Tests 04/19/19 05:44 Microbiology Microbiology 04/19/19 Gastrointestinal Tract Panel (PCR), Received Pending 04/17/19 Blood Culture - Preliminary, Resulted No growth after 24 hours . All specim... 04/16/19 Urine Culture - Final, Complete Escherichia Coli EDWARD MENJIVAR MD Apr 19, 2019 11:23
[2019-04-19 14:00] VITALS: BP 143/70
[2019-04-19] MEDS: cefTRIAXone SOD 1 GM in D5W MINI-BAG PLUS 50 ML IV SCH (17:42)
[2019-04-19 18:00] VITALS: BP 133/72
--- NOTE | 2019-04-19 18:40 | IPNPDOC ---
Subjective Review oF Systems Chief Complaint The patient is a 88-year-old female admitted with a reason for visit of Acute Kidney Injury. Events since Last Encounter feeling better after stent. Objective Physical Examination Heart Exam: Positive: Rate Normal, Murmurs (2/6 SM S1/S2 intact) Vital Signs/I&O Vital Signs Date Time Temp Pulse Resp B/P (MAP) Pulse Ox O2 Delivery O2 Flow Rate FiO2 04/19/19 18:00 98.0 65 18 133/72 (92) 95 Room Air I&O- Last 24 Hours up to 6 AM 04/19/19 06:00 Intake Total 955 ml Output Total 2925 ml Balance -1970 ml Laboratory Data Labs 24H Laboratory Tests 2 04/19/19 05:44: Immature Granulocyte % (Auto) 0.3, Neutrophils (%) (Auto) 69.6H, Lymphocytes (%) (Auto) 16.6L, Monocytes (%) (Auto) 10.7H, Eosinophils (%) (Auto) 2.2, Basophils (%) (Auto) 0.6, Neutrophils # (Auto) 4.3, Lymphocytes # (Auto) 1.0L, Monocytes # (Auto) 0.7, Eosinophils # (Auto) 0.1, Basophils # (Auto) 0.0, Nucleated Red Blood Cells % (auto) 0.0, Anion Gap 11, Glomerular Filtration Rate 20.1L, Calcium Level 8.8 CBC/BMP Laboratory Tests 04/19/19 05:44 Microbiology Microbiology 04/19/19 Gastrointestinal Tract Panel (PCR) - Final, Complete 04/17/19 Blood Culture - Preliminary, Resulted No growth after 24 hours . All specim... 04/16/19 Urine Culture - Final, Complete Escherichia Coli Assessment/Plan Date Seen The patient was seen on 04/19/19. Plan/VTE VTE Prophylaxis Ordered?: Yes (Heparin ) Plan s/p cystoscopy with right ureteral stent for obstructive hydronephrosis on 04/18/19 Creatinine improving, urine output improved. Feeling better Trend creatinine and follow up with outpatient urologist. DREW Encinas per primary team. Diet: Continue Current ANDREY ISABEL M.D. Apr 19, 2019 18:40
[2019-04-19] MEDS: SERTRALINE HCL 25 MG TABLET PO SCH (20:26)
[2019-04-19 22:00] VITALS: BP 130/56
[2019-04-20 02:00] VITALS: BP 130/56
[2019-04-20] MEDS: LEVOTHYROXINE 75MCG TABLET (0.075MG) PO SCH (05:40)
[2019-04-20 06:00] VITALS: BP 134/59
[2019-04-20 06:20] LABS: BASO # 0.1 10^3/uL (0.0-0.2); BASO % 0.7 % (0.0-1.0); EOS # 0.2 10^3/uL (0.0-0.5); EOS % 2.6 % (0.0-3.0); HEMATOCRIT 38.3 % (36.0-47.0); HEMOGLOBIN 12.6 g/dl (12.0-15.5); LYMPH # 1.7 10^3/uL (1.5-5.0); MEAN CORPUSCULAR HEMOGLOBIN 30.9 pg (27.0-33.0); MEAN CORPUSCULAR HGB CONC 32.9 g/dl (32.0-36.5); MEAN CORPUSCULAR VOLUME 93.9 fl (80.0-96.0); MONO # 0.7 10^3/uL (0.0-0.8); MONO % 9.6 % (0.0-5.0); NEUTROPHILS % 64.8 % (36.0-66.0); PLATELET COUNT, AUTOMATED 342 10^3/uL (150-450); RED BLOOD COUNT 4.08 10^6/uL (4.00-5.40); WHITE BLOOD COUNT 7.7 10^3/uL (4.0-10.0)
[2019-04-20 06:41] LABS: CALCIUM LEVEL 8.6 MG/DL (8.8-10.2); CREATININE FOR GFR 1.25 MG/DL (0.55-1.30); POTASSIUM SERUM 2.9 MEQ/L (3.5-5.1)
[2019-04-20] MEDS ORDERED: POTASSIUM CHLORIDE 10 MEQ SR TABLET PO ONE (08:00)
[2019-04-20] MEDS: SERTRALINE HCL 50 MG TAB PO SCH (08:05)
[2019-04-20] MEDS: HEPARIN SOD (PORCINE) 5000 UNITS/ML VIAL SQ SCH ×2 (08:05→20:25)
--- NOTE | 2019-04-20 08:25 | IPNPDOC ---
Subjective Date Seen The patient was seen on 04/20/19. Subjective Chief Complaint/HPI feeling better. No nausea , no diarrehea. seen sitting up in chair eating breakfast. will request PT evaluation. Objective Physical Examination General Exam: Positive: Alert, Cooperative, No Acute Distress Eye Exam: Positive: Conjunctiva & lids normal, EOMI (6th nerve palsy) ENT Exam: Positive: Atraumatic, Pharynx Normal; Negative: Mucous membr. moist/pink (mucus membranes dry) Neck Exam: Positive: Supple; Negative: thyromegaly Chest Exam: Positive: Clear to auscultation, Normal air movement Heart Exam: Positive: Rate Normal, Murmurs (2/6 SM S1/S2 intact) Abdomen Exam: Positive: Normal bowel sounds, Soft, Hernia (RLQ) Extremity Exam: Negative: Clubbing, Cyanosis, Edema, Swelling Skin Exam: Positive: Nl turgor and temperature Neuro Exam: Positive: Normal Speech Psych Exam: Positive: Mood NL Assessment /Plan Assessment Patient is an 88 year old female transferred from [facility] ED, directly admitted per Dr. Barcenas. Pt has a PMHx of HTN, Grave's Dz. solitary right kidney with right hydronephrosis seen in CT about 1 week ago, Anxiety. 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 Pt is unable to provide the history due to some confusion and gives her sons permission to do so. She has felt unwell x 1 month. She has felt weakness and loss of appetite which has been worsening. Pt has also had diarrhea ongoing during this time; sometimes the stool is formed and other times it is watery. She has never had a colonoscopy. Pt also had very little urine output progressively worsening per her son. A CT with contrast of the abdomen and pelvis done on Sunday as per urology order and since then she has worsened further. She vomited after the CT. At 11pm last night she became sick, worsening lethargy and confusion. Son had to convince her to go to the ED today. While in the [facility] ED she had a CT w/out contrast. Per Dr. Greenberg ([place]): no CT visualized on this CT or CT on Sunday. Findings 04/16"findings suggest obstruction of the right kidney at the level of the proximal right ureter and urologic consult suggested. Worsening inflammatory changes throughout the abdome n, pelvis with increasing free-fluid about the spleen. Wall thickening and inflammatory bowel disease is not excluded especially of the stomach and clinical correlation is advised for further eval. and mgmt." She was also noted to have a Cr of 3.7. Patient was transferred to [facility] for further evaluation and management. From the EMR, pt had an appointment with urology on 04/10 due to worsening hy dronephrosis per CT 04/01/19. She was to be scheduled to have an urgent CT urogram to assess etiology. Cr. was 0.8 at that visit. Since being admitted to [facility], she has received fluid hydration. Repeat CMP showed Cr of 3.68. Pt catheterized with 200cc urine output. Acute kidney injury due to obstructive uropathy, contrast nephropathy on the back ground of ARBS and diuretics. S/P cysto and right ureteral stent placement on 04/18/19 Creatinine normalized today down to 1.25 Solitary kidney with obstructive uropathy s/p right ureteric stent with improved renal function UTI Ecoli in culture, continue ceftriaxone. HTN Continue Metoprolol Hold JONAS-I and HCTZ Hypothyroid continue Synthroid Anxiety continue Zoloft Elevated lipase probably due to Acute renal failure. no evidence of pancreatitis in the CT abdomen. Diarrhea chronic every other day about 2 times/ day. No diarrhea today or yesterday. GI panel sent Plan/VTE VTE Prophylaxis Ordered?: Yes (Heparin ) Plan Diet: Continue Current VS, I&O, 24H, Fishbone Vital Signs/I&O Vital Signs Date Time Temp Pulse Resp B/P (MAP) Pulse Ox O2 Delivery O2 Flow Rate FiO2 04/20/19 06:00 98.7 65 16 134/59 (84) 93 Room Air I&O- Last 24 Hours up to 6 AM 04/20/19 06:00 Intake Total 3490 ml Output Total 1975 ml Balance 1515 ml Laboratory Data 24H LABS Laboratory Tests 2 04/20/19 05:59: Immature Granulocyte % (Auto) 0.3, Neutrophils (%) (Auto) 64.8, Lymphocytes (%) (Auto) 22.0L, Monocytes (%) (Auto) 9.6H, Eosinophils (%) (Auto) 2.6, Basophils (%) (Auto) 0.7, Neutrophils # (Auto) 5.0, Lymphocytes # (Auto) 1.7, Monocytes # (Auto) 0.7, Eosinophils # (Auto) 0.2, Basophils # (Auto) 0.1, Nucleated Red Blood Cells % (auto) 0.0, Anion Gap 10, Glomerular Filtration Rate 43.0, Calcium Level 8.6L CBC/BMP Laboratory Tests 04/20/19 05:59 Microbiology Microbiology 04/19/19 Gastrointestinal Tract Panel (PCR) - Final, Complete 04/17/19 Blood Culture - Preliminary, Resulted No Growth after 48 hours. All Specime... 04/16/19 Urine Culture - Final, Complete Escherichia Coli EDWARD MENJIVAR MD Apr 20, 2019 08:25
[2019-04-20] MEDS: METOPROLOL TART 50 MG TAB PO SCH ×2 (08:29→20:24)
[2019-04-20 08:52] LABS: MAGNESIUM LEVEL 1.3 MG/DL (1.8-2.4); PHOSPHORUS LEVEL 2.3 MG/DL (2.5-4.9)
[2019-04-20] MEDS: POTASSIUM CHLORIDE 10 MEQ SR TABLET PO SCH (10:34)
[2019-04-20] MEDS: K-PHOS ORIGINAL (POT.ACID PHOSPHATE) 500MG TAB PO SCH ×2 (10:59→20:24)
[2019-04-20] MEDS ORDERED: MAG SULF 1GM/100ML (MAG RUN) 1 GM in IV 1 EA IV ONE (11:00)
[2019-04-20 14:00] VITALS: BP 144/58
[2019-04-20] MEDS: cefTRIAXone SOD 1 GM in D5W MINI-BAG PLUS 50 ML IV SCH (17:05)
[2019-04-20 18:00] VITALS: BP 130/60
[2019-04-20] MEDS: SERTRALINE HCL 25 MG TABLET PO SCH (20:25)
[2019-04-20 22:00] VITALS: BP 141/58
[2019-04-21] MEDS: LEVOTHYROXINE 75MCG TABLET (0.075MG) PO SCH (05:36)
[2019-04-21 06:00] VITALS: BP 150/66
[2019-04-21 06:16] LABS: BASO % 0.5 % (0.0-1.0); EOS # 0.1 10^3/uL (0.0-0.5); EOS % 0.8 % (0.0-3.0); HEMATOCRIT 35.2 % (36.0-47.0); HEMOGLOBIN 11.7 g/dl (12.0-15.5); LYMPH # 1.4 10^3/uL (1.5-5.0); LYMPH % 17.4 % (24.0-44.0); MEAN CORPUSCULAR HEMOGLOBIN 30.7 pg (27.0-33.0); MEAN CORPUSCULAR HGB CONC 33.2 g/dl (32.0-36.5); MEAN CORPUSCULAR VOLUME 92.4 fl (80.0-96.0); MONO # 0.7 10^3/uL (0.0-0.8); MONO % 9.2 % (0.0-5.0); NEUTROPHILS # 5.6 10^3/uL (1.5-8.5); NEUTROPHILS % 71.7 % (36.0-66.0); PLATELET COUNT, AUTOMATED 316 10^3/uL (150-450); RED BLOOD COUNT 3.81 10^6/uL (4.00-5.40); WHITE BLOOD COUNT 7.8 10^3/uL (4.0-10.0)
[2019-04-21 06:35] LABS: BLOOD UREA NITROGEN 15 MG/DL (7-18); CALCIUM LEVEL 8.1 MG/DL (8.8-10.2); CARBON DIOXIDE LEVEL 24 MEQ/L (21-32); CHLORIDE LEVEL 103 MEQ/L (98-107); CREATININE FOR GFR 0.86 MG/DL (0.55-1.30); GLOMERULAR FILTRATION RATE > 60.0 (>32); GLUCOSE, FASTING 84 MG/DL (70-100); POTASSIUM SERUM 3.4 MEQ/L (3.5-5.1); SODIUM LEVEL 136 MEQ/L (136-145)
[2019-04-21 07:16] LABS: MAGNESIUM LEVEL 1.2 MG/DL (1.8-2.4); PHOSPHORUS LEVEL 1.9 MG/DL (2.5-4.9)
--- NOTE | 2019-04-21 07:30 | IPN ---
DATE: 04/20/2019 SUBJECTIVE: The patient was seen and examined at the bedside today morning. She is afebrile, hemodynamically stable. The patient was actually sleepy today morning. Her renal function continues to improve, creatinine has come down to 1.25. She still has an indwelling Encinas catheter and urine in the bag is still blood tinged. OBJECTIVE: Vital signs: Temperature is 97.6 degrees Fahrenheit, blood pressure 144/58, pulse is 71, respiratory rate of 18, saturating 96% on room air. Intake and output: Urine output recorded is 1.8 liters yesterday, 1.2 liters so far today since overnight. Weight in the bed scale is not available. PHYSICAL EXAMINATION: General: The patient is laying in the bed sleeping at this time. No apparent distress. Head and neck exam: Head is normocephalic and atraumatic and there is no JVD noted. Cardiovascular: S1, S2, regular rate. No edema of the bilateral lower extremities. Respiratory: Chest is clear to auscultation bilaterally. Bilateral equal air entry. No rales or rhonchi. Abdomen: Soft, positive bowel sounds. Nontender. Genitourinary: She has an indwelling Encinas catheter. Urine in the bag is blood tinged. Musculoskeletal: No clubbing or cyanosis. ASSOCIATE PASTOR: The patient is sleeping at this time. Otherwise she has no focal deficit. LABORATORY REVIEW: CBC showed WBC 7.7, hemoglobin 12.6, platelets of 342. BMP showed sodium 139, potassium 2.9, chloride 106, bicarbonate 23, BUN 24, creatinine is 1.25, it was 2.4 yesterday, calcium 8.6, phosphorus 2.3, magnesium is 1.3. CURRENT INPATIENT MEDICATIONS: The patient continues to be on IV ceftriaxone, Macrobid 1 gram IV times one dose was ordered today. She was also given potassium chloride 40 mEq one dose in the morning. She has also been started on K-Phos 1 gram by mouth twice a day. No other change in the medications today as compared with yesterday. ASSESSMENT/PLAN: 1. Acute kidney injury superimposed on chronic kidney disease. It was secondary to dehydration, volume depletion, IV contrast dye and hydronephrosis of the solitary functioning kidney. The patient got retrograde pyelogram. Obstruction is relieved. Renal function is significantly getting better. 2. E. coli urinary tract infection. The patient had pyelonephritis of the solitary functioning kidney because of obstruction. Continue the ceftriaxone. 3. Hypokalemia. The patient has persistent hypokalemia because of postobstructive diuresis and because of improvement in the metabolic acidosis. The patient was already given potassium chloride in the morning and she will get another dose in the afternoon. 4. Hypomagnesemia. The patient was already given magnesium 1 gram IV. 5. Hypophosphatemia. The patient was started on K-Phos. Once her diet intake improves her phosphorus level will get better. 6. Hypertension. Continue current dose of metoprolol 50 mg by mouth twice a day. Avoid use of JONAS inhibitors at this time.
--- NOTE | 2019-04-21 07:56 | RO ---
DATE OF PROCEDURE: 04/18/2019 PREPROCEDURE DIAGNOSIS: Right hydronephrosis with acute kidney injury. POSTPROCEDURE DIAGNOSIS: Right hydronephrosis with acute kidney injury. PROCEDURE: Cystoscopy, right retrograde pyelography with intraoperative interpretation, right ureteral stent placement. SURGEON: Dr. Lcaho Luke CHANNEL ROUGHER: None. ANESTHESIA: Monitored anesthesia care (MAC) with local. IV FLUID: Crystalloid. SPECIMENS: None. DRAINS: 6-Cymro multi-length right ureteral stent and a 16-Cymro Encinas. COMPLICATIONS: None. CONDITION: Stable to post-anesthesia care unit (PACU). INDICATIONS FOR PROCEDURE: The patient is an 88-year-old female with a solitary right kidney who presented to the hospital with right-sided hydronephrosis as well as acute kidney injury with a creatinine of 3.6. A Encinas catheter was placed with adequate urine output. She had received IV contrast approximately 1 week prior, and there was some concern for intrinsic renal dysfunction not related to hydronephrosis. Therefore, we waited a period of [address] scan, which re-demonstrated right-sided hydronephrosis. However, her creatinine did rise to 3.8 this morning, and after a lengthy discussion with the sons and patient, they decided to proceed to the operating room for right ureteral stent placement with the hope of decompression of the collecting system to see if the renal function will improve. DESCRIPTION OF PROCEDURE: The patient was identified in the preop holding area as herself, informed consent was obtained from the son after risks, benefits and alternatives discussed. The son is the Power of Order Filler. She was transferred to the operating room and assisted onto the operating table. Preoperative antibiotics had been administered. She was prepped and draped in the standard sterile fashion after MAC anesthesia was induced, was used for local anesthesia. A 21-Cymro cystoscope was gently into the bladder. Cystoscopy performed. There was no bladder lesion identified. A 0.38 Sensor guidewire was then placed into the right ureteral orifice, carried up to the level of the right kidney. A 5-Cymro open-ended catheter was then placed over the wire into the right kidney. Hydronephrotic drip was noted. A retrograde pyelogram was performed, which demonstrated hydronephrosis of the right kidney. Once this was done, the wire was then replaced and a 6-Cymro multi-length stent was then deployed. The proximal curl was noted to be in the renal pelvis. Distal curl confirmed to be within the bladder on cystoscopy. The patient's bladder was emptied with a 16-Cymro Encinas. She was awakened from anesthesia and transferred to the PACU in stable condition.
--- NOTE | 2019-04-21 08:02 | IPN ---
DATE: 04/19/2019 SUBJECTIVE: Florecita is seen and examined this morning sitting out of bed to the chair feeding herself lunch. Her sons were not present at the bedside at the time of my visit. Her labs show improvement in renal function. She continues with a Encinas catheter and has been having improving urine output. She denies any recurrent diarrhea and states she feels well. She denies shortness of breath or chest pain. Temperature 97.2, pulse 67, respiratory rate 18, blood pressure 143/70, saturating 93% on room air. Intake yesterday was 655. Urine output yesterday was 2.2 liters, Weight in the bed scale today is not recorded. GENERAL: Patient is seen sitting out of bed to the chair feeding herself lunch, awake, alert, oriented to person, place and situation. Extraocular muscles are intact. Tongue is moist. Neck is supple. Pupils are round and reactive to light. Jugular veins were not elevated. CARDIAC: S1, S2. Regular rate and rhythm. No edema in the legs on the dependent area. LUNGS: Show symmetric air entry bilaterally. No crackle or rales. ABDOMEN: Soft. There is a hernia in the right lower quadrant. There are bowel sounds. GENITOURINARY: Shows Encinas catheter with urine. SKIN: Normal turgor and temperature. EXTREMITIES: Negative for clubbing, cyanosis or edema. NEUROLOGIC: Interactive and conversational. Oriented to person and place. LABORATORY DATA: Sodium 140, potassium 2.9, bicarbonate 21, BUN 42, creatinine 2.4, hemoglobin 11.5. Blood cultures no growth for 24 hours. GI PCR is negative. INPATIENT MEDICATIONS: Reviewed by myself. Patient continues on ceftriaxone 1 gram IV daily, heparin 5000 units subcutaneous every 12 hours, Synthroid 75 mcg by mouth daily. She received 500 mL normal saline bolus, potassium chloride 40 mEq by mouth x1. Remainder of medications are unchanged as compared to yesterday. PROBLEMS: 1. Nonoliguric acute renal failure in this patient with solitary right kidney with hydronephrosis and hydroureter, recent IV contrast administration and home medication including losartan and diuretics in the setting of nausea, vomiting and poor oral intake. Patient has Escherichia (E) coli urinary tract infection (UTI). She is receiving ceftriaxone. She had a Encinas catheter placed. She is status post cystoscopy and stent placement as well. Nephrotoxics have been held. She received bicarbonate-containing IV fluids. Her renal function is improving. Her urine output is improving. Creatinine is down to 2.4 from a peak of 3.7. Repeat renal panel again tomorrow. Her oral intake is now improving as well. Primary team did give a small fluid bolus. 2. Metabolic acidosis that was related to renal failure. She received sodium bicarbonate-containing IV fluids. Her renal function is now in recovery. Her bicarbonate level is coming up appropriately. 3. Hypokalemia. She received oral potassium supplementation. 4. Urinary tract infection (UTI)/probable pyelonephritis Escherichia (E) coli in urine culture, and she is appropriately on ceftriaxone. 5. Hypertension. Blood pressures are well-controlled. She continues on metoprolol 50 mg twice a day. Please keep her off of angiotensin-converting enzyme (JONAS) inhibitor, angiotensin receptor rock (ARB), and diuretics. Allow for systolic up to 150s in view of age and renal failure. 6. Solitary kidney with obstructive uropathy status post ureteral stent, as mentioned above.
--- NOTE | 2019-04-21 08:09 | IPN ---
DATE: 04/18/2019 SUBJECTIVE: The patient is seen and examined this morning at the bedside. She denies any overnight events or complaints. Denies vomiting. Denies diarrhea. Has still been having poor oral intake. Urine output has been poor. Laboratory studies show worsening renal function. She is pending cystoscopy and stent placement later today. I had a lengthy discussion with her sons at the bedside regarding goals of care. Temperature 97.9, pulse 70, respiratory rate 17, blood pressure 143/63, saturating 95% on room air. Intake yesterday was 900. Urine output yesterday was 600. Weight in the bed scale today is not recorded. GENERAL: The patient is seen lying lateral recumbent. Elderly female. Awake, alert, comfortable, and smiling in good spirits in no distress. Extraocular muscles are intact. The tongue is moist. Neck is supple. Jugular veins were not elevated. CARDIAC: S1, S2, regular rate and rhythm. LUNGS: Show symmetric air entry bilaterally. No crackle or rales. ABDOMEN: Soft and nontender. GENITOURINARY: Shows a Encinas catheter with urine. EXTREMITIES: Negative for edema, clubbing, or cyanosis. SKIN: Normal temperature and turgor. LABORATORY DATA: White count 8.9, hemoglobin 12.4, platelets 328. Sodium 137, potassium 3.9, bicarbonate 15, BUN 55, creatinine 3.8. Urine culture grew Escherichia (E) coli sensitive to ceftriaxone. Blood cultures are pending. INPATIENT MEDICATIONS: Reviewed by myself, and she is started on sodium bicarbonate drip at 50 mL an hour times one liter only. Remainder medications is unchanged from prior. PROBLEMS: 1. Nonoliguric acute renal failure, multifactorial and secondary to solitary kidney with obstructive uropathy, contrast exposure, use of angiotensin receptive rock and thiazide diuretic at home, Escherichia (E) coli pyelonephritis, poor oral intake. Noncontrast CT scan yesterday showed that the kidneys are still enhancing and lighting up, contrast distal in her system. Renal function continues to worsen, and she is for cystoscopy and stent placement and today. Given the patient's advanced age, solitary kidney, and multifactorial etiology of her renal failure, she may have ongoing renal injury, even with relief of the obstruction. Labs today do show some mild acidosis. She is not in any urgent dialysis needs; however I did discuss this at length with her sons at the bedside, who informed me that the patient does not wish for dialysis if it should become necessary. 2. Metabolic acidosis related to acute renal failure. Serum bicarbonate down to 15. She is started on sodium bicarbonate drip for 150 mEq sodium bicarbonate to run at 50 mL an hour for 1 liter. 3. E. coli pyelonephritis, sensitive to ceftriaxone. Urine culture is noted. Blood culture is pending. She remains afebrile without leukocytosis and hemodynamically stable. 4. Hypertension. Blood pressures are acceptable, and she is only on metoprolol at this time. No other antihypertensive is presently needed. Systolic has been 140s, which is reasonable. DISPOSITION: Multifactorial renal failure in this patient with advanced age and solitary kidney with obstruction, pyelonephritis, contrast exposure, decreased oral intake, and use of nephrotoxic medications at home. Continue with appropriate antimicrobial therapy, judicious bicarbonate-containing intravenous (IV) fluid. She is for cystoscopy and probable stent placement today. Family and patient indicate that they are not interested in dialysis should that become necessary.
[2019-04-21] MEDS: SERTRALINE HCL 50 MG TAB PO SCH (08:52)
[2019-04-21] MEDS: K-PHOS ORIGINAL (POT.ACID PHOSPHATE) 500MG TAB PO SCH ×2 (08:52→20:54)
[2019-04-21] MEDS: POTASSIUM CHLORIDE 10 MEQ SR TABLET PO SCH (08:53)
[2019-04-21] MEDS: HEPARIN SOD (PORCINE) 5000 UNITS/ML VIAL SQ SCH ×2 (08:55→20:53)
[2019-04-21] MEDS: METOPROLOL TART 50 MG TAB PO SCH ×2 (08:55→20:54)
[2019-04-21] MEDS: MAGNESIUM OXIDE 400 MG TAB (MAG-OX) PO SCH ×2 (11:21→20:53)
[2019-04-21] MEDS: MAG SULF 1GM/100ML (MAG RUN) 1 GM in IV 1 EA IV SCH ×3 (11:22→13:30)
--- NOTE | 2019-04-21 12:48 | IPN ---
DATE OF SERVICE: 04/21/2019 SUBJECTIVE: The patient was seen and examined at the bedside today morning. She was actually sitting in the sofa. She is awake and alert. Her renal function is significantly better. Creatinine is down to 0.8. She still has an indwelling Encinas catheter. Urine in the bag is getting more clear now. OBJECTIVE: Vital Signs: Temperature is 98.9 degrees Fahrenheit, blood pressure 137/70, pulse is 84, respiratory rate of 16, saturating 95% on room air. Intake and output: Urine output recorded is 1.6 liters yesterday, 758 mL so far today since overnight. PHYSICAL EXAMINATION: General: The patient is awake, alert, oriented times three, sitting up in the sofa, in no apparent distress. Head/Neck Exam. Extraocular muscles intact. Pupils equally round and reactive to light. Mucous membranes are moist. Neck is supple. There is no jugular venous distention (JVD). Cardiovascular: S1, S2, regular rate. No edema of the bilateral lower extremities. Respiratory: Chest is clear to auscultation bilaterally. Bilateral equal air entry. No rales or rhonchi. Abdomen: Soft, positive bowel sounds, nontender. No organomegaly. Genitourinary: Indwelling Encinas catheter. Urine in the bag is light pink in color now. Musculoskeletal: No clubbing or cyanosis. Pulses are 2+. Central Nervous System (BORDER PATROL OFFICER): No focal deficit. Power is 5/5 in all extremities. LAB REVIEW: CBC showed WBC 7.8, hemoglobin is 11.7. BMP showed sodium 136, potassium 3.4, chloride 103, bicarbonate 24, BUN 15, creatinine 0.86, calcium 8.1, phosphorus 1.9, magnesium is 1.2. CURRENT INPATIENT MEDICATIONS: The patient's medications were all reviewed by me. She continues to be on intravenous (IV) ceftriaxone. IV Maxifed was ordered by myself a total of three bags. The patient has already been started on magnesium oxide 400 mg by mouth twice a day. She continues to be on oral K-Phos. No other change in the medications today as compared with yesterday. ASSESSMENT AND PLAN: 1. Acute kidney injury superimposed on chronic kidney disease. The patient's renal function is significantly better. Creatinine is down to 0.8, which is close to her baseline. 2. Escherichia (E) coli urinary tract infection. The patient is getting IV ceftriaxone. Her last dose will be on 04/23/2019. 3. Hypokalemia. Potassium level is improving. Continue current dose of potassium chloride 40 mEq by mouth daily. 4. Hypomagnesemia. The patient has persistent hypomagnesemia. I have ordered three dose of IV Maxifed 1 gram. She has also been started on magnesium oxide 400 mg by mouth twice a day. 5. Hypophosphatemia. It is secondary to decreased oral intake. Continue current dose of K phos. Phosphorus level should improve with improvement in the oral intake. 6. Hypertension. Continue current dose of the metoprolol. DISPOSITION: The patient's renal function is significantly getting better. Hopefully patient should be able to be discharged from the hospital in the next 24-48 hours. She needs to followup with nephrology service 2 weeks after discharge from the hospital.
[2019-04-21 14:00] VITALS: BP 141/68
--- NOTE | 2019-04-21 14:14 | IPNPDOC ---
Subjective Date Seen The patient was seen on 04/21/19. Subjective Chief Complaint/HPI Ms. Marroquin is an 88 year old female admitted with a diagnosis of JAMIA secondary to obstructive uropathy, contrast dye and severe dehydration superimposed on ARBS and diuretics. She is seen sitting up in the chair today with her sons and [id number] present. She and her family agree she is doing much better today. She denied any pain and her appetite has improved significantly. She had 3-4 bouts of water stools yesterday. Her PCP Dr. Rita Nunez was working this up RE CT with contrast abdomen on 04/14. We will have to be sure this continues to be worked-up outpatient. General: Denies: Chills, Night Sweats, Fatigue, Malaise, Normal Appetite (appetite improving ) Constitutional: Denies: Chills, Fever, Malaise, Night Sweats, Weakness Eyes: Denies: Pain ENT: Reports: Other Symptoms ([place] ); Denies: Head Aches Skin: Denies: Rash Pulmonary: Denies: Dyspnea, Cough Cardiovascular: Denies: Chest Pain, Palpitations, Orthopnea, Lt Headedness Gastrointestinal: Denies: Abdominal Pain Genitourinary: Denies: Dysuria Hematologic: Denies: Bruising Musculoskeletal: Denies: Neck Pain, Back Pain, Joint Pain, Muscle Pain, Spasms Neurological: Reports: Confusion; Denies: Weakness Psych: Reports: Mood Normal, Memory Issues Objective Physical Examination General Exam: Positive: Alert, Cooperative, No Acute Distress Eye Exam: Positive: PERRLA, Conjunctiva & lids normal, EOMI (6th nerve palsy) ENT Exam: Positive: Atraumatic, Mucous membr. moist/pink, Pharynx Normal, Tongue Midline Neck Exam: Positive: Supple; Negative: thyromegaly Chest Exam: Positive: Clear to auscultation, Normal air movement Heart Exam: Positive: Rate Normal, Murmurs (2/6 SM S1/S2 intact) Abdomen Exam: Positive: Normal bowel sounds, Soft, Hernia (RLQ); Negative: Tenderness Extremity Exam: Negative: Clubbing, Cyanosis, Edema, Swelling Skin Exam: Positive: Nl turgor and temperature Neuro Exam: Positive: Normal Speech Psych Exam: Positive: Mood NL Assessment /Plan Assessment Patient is an 88 year old female transferred from ED, directly admitted per Dr. Barcenas. Pt has a PMHx of HTN, Grave's Dz. solitary right kidney with right hydronephrosis seen in CT about 1 week ago, Anxiety. 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 Pt is unable to provide the history due to some confusion and gives her sons perm ission to do so. She has felt unwell x 1 month. She has felt weakness and loss of appetite which has been worsening. Pt has also had diarrhea ongoing during this time; sometimes the stool is formed and other times it is watery. She has never had a colonoscopy. Pt also had very little urine output progressively worsening per her son. A CT with contrast of the abdomen and pelvis done on Sunday as per urology order and since then she has worsened further. She vomited after the CT. At 11pm last night she became sick, worsening lethargy and confusion. Son had to convince her to go to the ED today. While in the [facility] ED she had a CT w/out contrast. Per Dr. Greenberg ([place]): no CT visualized on this CT or CT on Sunday. Findings 04/16 "findings suggest obstruction of the right kidney at the level of the proximal right ureter and urologic consult suggested. Worsening inflammatory changes throughout the abdomen, pelvis with increasing free-fluid about the spleen. Wall thickening and inflammatory bowel disease is not excluded especially of the stomach and clinical correlation is advised for further eval. and mgmt." She was also noted to have a Cr of 3.7. Patient was transferred to [facility] for further evaluation and management. From the EMR, pt had an appointment with urology on 04/10 due to worsening hydronephrosis per CT 04/01/19. She was to be scheduled to have an urgent CT urogram to assess etiology. Cr. was 0.8 at that visit. Since being admitted to [facility], she has received fluid hydration. Repeat CMP showed Cr of 3.68. Pt catheterized with 200cc urine output. Acute kidney injury due to obstructive uropathy, contrast nephropathy on the back ground of ARBS and diuretics. S/P cysto and right ureteral stent placement on 04/18/19 Cr stable 0.86 Solitary kidney with obstructive uropathy s/p right ureteric stent with improved renal function Encinas to be removed today per urology UTI E. coli per culture, continue ceftriaxone until 04/23/19. HTN Continue Metoprolol Hold JONAS-I and HCTZ Hypothyroid continue Synthroid Anxiety continue Zoloft Elevated lipase probably due to Acute renal failure. no evidence of pancreatitis in the CT abdomen. Diarrhea chronic every other day about 2 times/ day. Watery stools yesterday receiving Mg 2+ supplementation today which may prolong or worsen symptoms GI panel done inpatient is negative be sure the work up is completed per PCP on d/c Hypomagnesemia/Hypokalemia possibly 2/2 GI loss with intermittent diarrhea and poor oral intake IV replacement given; re-check BMP 04/22/19 for resolution encouraged to eat and drink plenty of fluids; sons will reinforce Plan/VTE VTE Prophylaxis Ordered?: Yes (Heparin ) Plan Diet: Continue Current VS, I&O, 24H, Fishbone Vital Signs/I&O Vital Signs Date Time Temp Pulse Resp B/P (MAP) Pulse Ox O2 Delivery O2 Flow Rate FiO2 04/21/19 08:55 84 137/70 04/21/19 06:00 98.9 16 95 Room Air I&O- Last 24 Hours up to 6 AM 04/21/19 06:00 Intake Total 1240 ml Output Total 1325 ml Balance -85 ml Laboratory Data 24H LABS Laboratory Tests 2 04/21/19 06:00: Immature Granulocyte % (Auto) 0.4, Neutrophils (%) (Auto) 71.7H, Lymphocytes (%) (Auto) 17.4L, Monocytes (%) (Auto) 9.2H, Eosinophils (%) (Auto) 0.8, Basophils (%) (Auto) 0.5, Neutrophils # (Auto) 5.6, Lymphocytes # (Auto) 1.4L, Monocytes # (Auto) 0.7, Eosinophils # (Auto) 0.1, Basophils # (Auto) 0.0, Nucleated Red Blood Cells % (auto) 0.0, Anion Gap 9, Glomerular Filtration Rate > 60.0, Calcium Level 8.1L, Phosphorus Level 1.9L, Magnesium Level 1.2L CBC/BMP Laboratory Tests 04/21/19 06:00 Microbiology Microbiology 04/19/19 Gastrointestinal Tract Panel (PCR) - Final, Complete 04/17/19 Blood Culture - Preliminary, Resulted No Growth after 72 hours. All specime... 04/16/19 Urine Culture - Final, Complete Escherichia Coli Attending Note I have personally performed a face to face diagnostic evaluation on this patient. I have reviewed and agree with the care plan documented above. CATERINA FRANCOIS PA-C Apr 21, 2019 14:14 EDWARD MENJIVAR MD Apr 24, 2019 21:58
[2019-04-21] MEDS: cefTRIAXone SOD 1 GM in D5W MINI-BAG PLUS 50 ML IV SCH (17:52)
[2019-04-21] MEDS: SERTRALINE HCL 25 MG TABLET PO SCH (20:53)
[2019-04-21 22:00] VITALS: BP 147/69
[2019-04-22 06:00] VITALS: BP 117/64
[2019-04-22] MEDS: LEVOTHYROXINE 75MCG TABLET (0.075MG) PO SCH (06:04)
[2019-04-22 06:53] LABS: BASO % 0.4 % (0.0-1.0); EOS # 0.1 10^3/uL (0.0-0.5); EOS % 2.1 % (0.0-3.0); HEMATOCRIT 37.5 % (36.0-47.0); HEMOGLOBIN 12.4 g/dl (12.0-15.5); LYMPH # 1.2 10^3/uL (1.5-5.0); LYMPH % 18.2 % (24.0-44.0); MEAN CORPUSCULAR HEMOGLOBIN 30.8 pg (27.0-33.0); MEAN CORPUSCULAR HGB CONC 33.1 g/dl (32.0-36.5); MEAN CORPUSCULAR VOLUME 93.1 fl (80.0-96.0); MONO # 0.7 10^3/uL (0.0-0.8); MONO % 10.3 % (0.0-5.0); NEUTROPHILS # 4.6 10^3/uL (1.5-8.5); NEUTROPHILS % 68.3 % (36.0-66.0); PLATELET COUNT, AUTOMATED 319 10^3/uL (150-450); RED BLOOD COUNT 4.03 10^6/uL (4.00-5.40); WHITE BLOOD COUNT 6.8 10^3/uL (4.0-10.0)
[2019-04-22 07:23] LABS: BLOOD UREA NITROGEN 9 MG/DL (7-18); CALCIUM LEVEL 8.6 MG/DL (8.8-10.2); CARBON DIOXIDE LEVEL 22 MEQ/L (21-32); CHLORIDE LEVEL 105 MEQ/L (98-107); CREATININE FOR GFR 0.76 MG/DL (0.55-1.30); GLOMERULAR FILTRATION RATE > 60.0 (>32); GLUCOSE, FASTING 79 MG/DL (70-100); MAGNESIUM LEVEL 1.7 MG/DL (1.8-2.4); PHOSPHORUS LEVEL 1.8 MG/DL (2.5-4.9); POTASSIUM SERUM 3.8 MEQ/L (3.5-5.1); SODIUM LEVEL 136 MEQ/L (136-145)
[2019-04-22] MEDS: SERTRALINE HCL 50 MG TAB PO SCH (08:23)
[2019-04-22] MEDS: HEPARIN SOD (PORCINE) 5000 UNITS/ML VIAL SQ SCH (08:23)
[2019-04-22] MEDS: POTASSIUM CHLORIDE 10 MEQ SR TABLET PO SCH (08:23)
[2019-04-22] MEDS: K-PHOS ORIGINAL (POT.ACID PHOSPHATE) 500MG TAB PO SCH (08:23)
[2019-04-22] MEDS: MAGNESIUM OXIDE 400 MG TAB (MAG-OX) PO SCH (08:23)
[2019-04-22 08:29] VITALS: BP 146/72
[2019-04-22] MEDS: METOPROLOL TART 50 MG TAB PO SCH (08:29)
[2019-04-22] MEDS ORDERED: MAGNESIUM CHLORIDE 64 MG TABCR (SLO MAG) PO SCH (09:00)
--- NOTE | 2019-04-22 13:04 | IPNPDOC ---
Subjective Date Seen The patient was seen on 04/22/19. Subjective Chief Complaint/HPI Amendment: Patient was later cleared for discharge by Physical Therapy. Admission Diagnoses: 1. ARF 2/2 obstructive uropathy, contrast dye, severe dehydration superimposed ARB and diuretic use. 2. Solitary Kidney with Obstructive Uropathy 3. HTN 4. Hypothyroidism 5. Elevated liver Enzymes 6. Diarrhea, chronic 7. Anxiety Discharge Diagnoses: 1. Acute kidney injury 2/2 obstructive uropathy, contrast dye, severe dehydration superimposed ARB and diuretic use. 2. Solitary Kidney with Obstructive Uropathy s/p right ureteral stent placement 3. HTN 4. Hypothyroidism 5. Elevated lipase due to JAMIA 6. Diarrhea, chronic 7. Anxiety 8. UTI 9. Electrolyte immbalance Ms. Marroquin is an 88 year old female admitted with a diagnosis of JAMIA secondary to obstructive uropathy, contrast dye and severe dehydration superimposed on ARB and diuretic use. She is seen sitting up in the chair today with her [id number] present. Pt reported she is doing very well and would like to go home if possible today. She denied any urinary issues. Stool yesterday was semi-formed per [id number]. Pt stated her appetite is recovering very well - had a big breakfast this morning. General: Reports: Normal Appetite; Denies: Chills, Night Sweats, Fatigue, Malaise Constitutional: Denies: Chills, Fever, Malaise, Night Sweats, Weakness, Fatigue Eyes: Denies: Pain ENT: Denies: Head Aches Skin: Denies: Rash Pulmonary: Denies: Dyspnea, Cough Cardiovascular: Denies: Chest Pain, Palpitations, Orthopnea, Lt Headedness Gastrointestinal: Denies: Abdominal Pain Genitourinary: Denies: Dysuria, Frequency, Incontinence, Hematuria (per family - urine was clear in appearance ), Retention Hematologic: Denies: Bruising Musculoskeletal: Denies: Neck Pain, Back Pain, Joint Pain, Muscle Pain, Spasms Psych: Reports: Mood Normal Objective Physical Examination General Exam: Positive: Alert, Cooperative, No Acute Distress Eye Exam: Positive: PERRLA, Conjunctiva & lids normal, EOMI (6th nerve palsy) ENT Exam: Positive: Atraumatic, Mucous membr. moist/pink, Pharynx Normal, Tongue Midline Neck Exam: Positive: Supple; Negative: thyromegaly Chest Exam: Positive: Clear to auscultation, Normal air movement Heart Exam: Positive: Rate Normal, Murmurs (2/6 SM S1/S2 intact) Abdomen Exam: Positive: Normal bowel sounds, Soft, Hernia (RLQ); Negative: Tenderness Extremity Exam: Negative: Clubbing, Cyanosis, Edema, Swelling Skin Exam: Positive: Nl turgor and temperature Neuro Exam: Positive: Normal Speech Psych Exam: Positive: Mood NL Assessment /Plan Assessment Patient is an 88 year old female transferred from [facility] ED, directly admitted per Dr. Barcenas. Pt has a PMHx of HTN, Grave's Dz. solitary right kidney with right hydronephrosis seen in CT about 1 week ago, Anxiety. 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 Pt is unable to provide the history due to some confusion and gives her sons permission to do so. She has felt unwell x 1 month. She has felt weakness and loss of appetite which has been worsening. Pt has also had diarrhea ongoing during this time; sometimes the stool is formed and other times it is watery. She has never had a colonoscopy. Pt also had very little urine output progressively worsening per her son. A CT with contrast of the abdomen and pelvis done on Sunday as per urology order and since then she has worsened further. She vomited after the CT. At 11pm last night she became sick, worsening lethargy and confusion. Son had to convince her to go to the ED today. While in the [facility] ED she had a CT w/out contrast. Per Dr. Greenberg ([place]): no CT visualized on this CT or CT on Sunday. Findings 04/16 "findings suggest obstruction of the right kidney at the level of the proximal right ureter and urologic consult suggested. Worsening inflammatory changes throughout the abdomen, pelvis with increasing free-fluid about the spleen. Wall thickening and inflammatory bowel disease is not excluded especially of the stomach and clinical correlation is advised for further eval. and mgmt." She was also noted to have a Cr of 3.7. Patient was transferred to [facility] for further evaluation and management. From the EMR, pt had an appointment with urology on 04/10 due to worsening hydronephrosis per CT 04/01/19. She was to be scheduled to have an urgent CT urogram to assess etiology. Cr. was 0.8 at that visit. Since being admitted to [facility], she has received fluid hydration. Repeat CMP inga sun Cr of 3.68. Pt catheterized with 200cc urine output. Acute kidney injury due to obstructive uropathy, contrast nephropathy on the back ground of ARBS and diuretics. S/P cysto and right ureteral stent placement on 04/18/19 now resolved Solitary kidney with obstructive uropathy s/p right ureteric stent with improved renal function Encinas removed; pt denied any urinary symptoms UTI E. coli per culture, continue ceftriaxone until 04/23/19. HTN Continue Metoprolol Hold JONAS-I and HCTZ Hypothyroid continue Synthroid Anxiety continue Zoloft Elevated lipase probably due to Acute renal failure. no evidence of pancreatitis in the CT abdomen. Diarrhea chronic every other day about 2 times/ day. Semi-formed stools yesterday receiving Mg 2+ supplementation today which may prolong or worsen symptoms GI panel done inpatient is negative be sure the work up is completed per PCP on d/c Hypomagnesemia/Hypokalemia stable possibly 2/2 GI loss with intermittent diarrhea and poor oral intake continue PO supplementation encouraged to eat and drink plenty of fluids; sons will reinforce Dispo: d/c home today if cleared by PT. Follow-up appointment with PCP RE: JAMIA, Diarrhea, Electrolyte imbalance. Follow-up appt with nephrology x2 weeks post d/c. Plan/VTE VTE Prophylaxis Ordered?: Yes (Heparin ) Plan Diet: Continue Current VS, I&O, 24H, Fishbone Vital Signs/I&O Vital Signs Date Time Temp Pulse Resp B/P (MAP) Pulse Ox O2 Delivery O2 Flow Rate FiO2 04/22/19 08:29 81 146/72 04/22/19 06:00 98.1 17 94 Room Air I&O- Last 24 Hours up to 6 AM 04/22/19 06:00 Intake Total 1540 ml Output Total 825 ml Balance 715 ml Laboratory Data 24H LABS Laboratory Tests 2 04/22/19 06:24: Immature Granulocyte % (Auto) 0.7, Neutrophils (%) (Auto) 68.3H, Lymphocytes (%) (Auto) 18.2L, Monocytes (%) (Auto) 10.3H, Eosinophils (%) (Auto) 2.1, Basophils (%) (Auto) 0.4, Neutrophils # (Auto) 4.6, Lymphocytes # (Auto) 1.2L, Monocytes # (Auto) 0.7, Eosinophils # (Auto) 0.1, Basophils # (Auto) 0.0, Nucleated Red Blood Cells % (auto) 0.0, Anion Gap 9, Glomerular Filtration Rate > 60.0, Calcium Level 8.6L, Phosphorus Level 1.8L, Magnesium Level 1.7L CBC/BMP Laboratory Tests 04/22/19 06:24 Microbiology Microbiology 04/19/19 Gastrointestinal Tract Panel (PCR) - Final, Complete 04/17/19 Blood Culture - Preliminary, Resulted No Growth after 72 hours. All specime... 04/16/19 Urine Culture - Final, Complete Escherichia Coli Attending Note I have personally performed a face to face diagnostic evaluation on this patient. I have reviewed and agree with the care plan documented above. CATERINA FRANCOIS PA-C Apr 22, 2019 13:04 EDWARD MENJIVAR MD Apr 28, 2019 13:48
[2019-04-22 14:00] VITALS: BP 135/74
[2019-04-22] MEDS ORDERED: MAG SULF 1GM/100ML (MAG RUN) 1 GM in IV 1 EA IV ONE (14:30)
[2019-04-22] MEDS ORDERED: MAG400TA PO (14:39)
[2019-04-22] MEDS ORDERED: KLOR10TA76 PO (15:11)
[2019-04-22] MEDS ORDERED: MAGNESIUM OXIDE 400 MG TAB (MAG-OX) PO ONE (16:00)
[2019-04-23] MEDS ORDERED: POTASSIUM CHLORIDE 10 MEQ SR TABLET PO SCH (09:00)
--- NOTE | 2019-04-24 12:56 | IPN ---
DATE: 04/22/2019 SUBJECTIVE: The patient was seen and examined at the bedside. She was actually sitting in the sofa. She is afebrile, hemodynamically stable. Renal function continues to be stable. Electrolytes are improving. She has a very good urine output. She reports that her strength and appetite are getting better. OBJECTIVE: Vital signs: Temperature is 98.1 degrees Fahrenheit, blood pressure 146/72, pulse is 81, respiratory of 17, saturating 94% on room air. Intake and output: Urine output recorded is 1225 mL yesterday, 500 mL so far today since overnight. Weight in the bed scale is not available. Encinas catheter has been removed, so urine output is not accurately recorded. PHYSICAL EXAMINATION: GENERAL: The patient is awake, alert, oriented times three, sitting up in the sofa in no apparent distress. HEAD AND NECK: Extraocular muscles intact. Pupils equally round and reactive to light. Mucous membranes are moist. Neck is supple. There is no jugular venous distention (JVD). CARDIOVASCULAR: S1, S2, regular rate. No edema of the bilateral lower extremities. RESPIRATORY: Chest is clear to auscultation bilaterally. Bilateral equal air entry. No rales or rhonchi. ABDOMEN: Soft. Positive bowel sounds. Nontender. No organomegaly. GENITOURINARY: Encinas catheter has been removed now. MUSCULOSKELETAL: No clubbing or cyanosis. Pulses are 2+. CENTRAL NERVOUS SYSTEM: No focal deficit. Power is 5/5 in all extremities. LABORATORY REVIEW: CBC showed a WBC 6.8, hemoglobin 12.4, platelets are 319. BMP showed sodium 136, potassium 3.8, chloride 105, bicarbonate 22, BUN 9, creatinine is 0.76, calcium 8.6, phosphorus 1.8, magnesium 1.7. CURRENT INPATIENT MEDICATIONS: The patient's medications were all reviewed by me. She continues to be on intravenous (IV) Rocephin. Last dose will be tomorrow. She continues to be on oral magnesium. Also on potassium chloride 40 mEq by mouth daily. I am going to change the dose to 20 mEq daily. No other change in the medications today as compared with yesterday. ASSESSMENT AND PLAN: 1. Chronic kidney disease, stage II. Patient's renal function has improved back to baseline. She has solitary functioning kidney. 2. Escherichia (E) coli urinary tract infection. The patient is currently getting ceftriaxone. Last dose will be tomorrow. 3. Hypokalemia. It is improved within the normal range. I am going to decrease the potassium chloride dose to 20 mEq daily. 4. Hypomagnesemia. The patient got IV magnesium yesterday. She is also on magnesium oxide 400 mg by mouth twice a day. Magnesium level is significantly better. 5. Hypophosphatemia. Continue current dose of K-Phos twice a day. 6. Hypertension. Continue current dose of metoprolol. DISPOSITION: The patient's renal function has improved back to baseline. Nephrology service is going to sign off at this moment. She needs to followup with nephrology within 2 weeks after discharge from the hospital.
== END 2019-04-22 15:47 | disposition home or self-care (01) | DRG 683 ==
LOC: M MSPAV 13:52
PROVIDERS: ADMIT Internal Medicine; ATTEND Internal Medicine Nephrology
PROC: 0T9680Z Drainage of Right Ureter with Drainage Device, Via Natural or Artificial Opening Endoscopic (ICD-10-PCS; principal; 2019-04-18 11:30)
DX: N17.9 Acute kidney failure, unspecified (principal); N11.1 Chronic obstructive pyelonephritis; N39.0 Urinary tract infection, site not specified; Q60.0 Renal agenesis, unilateral; E87.2 Acidosis; N13.0 Hydronephrosis with ureteropelvic junction obstruction; Z79.899 Other long term (current) drug therapy; I12.9 Hypertensive chronic kidney disease with stage 1 through stage 4 chronic kidney disease, or unspecified chronic kidney disease; F32.9 Major depressive disorder, single episode, unspecified; E03.9 Hypothyroidism, unspecified; Z87.891 Personal history of nicotine dependence; F41.9 Anxiety disorder, unspecified; R19.7 Diarrhea, unspecified; Z96.642 Presence of left artificial hip joint; B96.29 Other Escherichia coli [E. coli] as the cause of diseases classified elsewhere; E87.6 Hypokalemia; E83.39 Other disorders of phosphorus metabolism; N18.2 Chronic kidney disease, stage 2 (mild)

== ENCOUNTER 2019-05-21 17:21 | Inpatient (IN) | payer MEDICARE ==
[~2019-05-21] VITALS: Ht 152.4 cm; Wt 53.0 kg
[~2019-05-21 17:21] MED LIST: KLOR10TA76 PO; LOSA50TA88 PO; MAG400TA PO; METO50TA7 PO; SERT-141 PO; SERT50TA29 PO; SYNT75TA PO; TRIA37.53 PO; VITA500C24 PO
[2019-05-21] MEDS ORDERED: ACETAMINOPHEN TAB 650MG DOSE (2X325MG) PO PRN (17:45)
[2019-05-21 19:05] VITALS: BP 134/60
--- NOTE | 2019-05-21 19:37 | HPEPDOC ---
[facility] Medical History & Physical Date of Admission May 21, 2019 Date of Service: May 21, 2019 Attending Physician: ELISABETH PAREDES MD History and Physical TIME OF SERVICE: 7:40 PM CHIEF COMPLAINT: Difficulties urinating HISTORY OF PRESENT ILLNESS: This is an 88-year-old female who presented to [facility] with complaints of difficulties urinating for about 3 days associated with hematuria. She had a left-sided nephrectomy 1959, and has history of right-sided hydronephrosis and had a ureteral stent placed on April 18. According to the patient's son, she has been seeing Dr. Olivo and recommendations were made to replace the stent and/or have a cystoscopy. At [facility]. The work up was remarkable for WBC count of 15.4, BUN of 30, and creatinine of 2.1. The lactic acid is 1.5, and based on the UA findings she was diagnosed with a UTI. The renal ultrasound showed hydro-utero nephrosis. She received a 1 L of IV fluids and 1 g of ceftriaxone. Currently she denies having abdominal pain, fever, chills, nausea, or vomiting. Her last bowel movement was yesterday. She is also complaining of of feeling weak. REVIEW OF SYSTEMS: 12 point review of systems negative except as listed in HPI PAST MEDICAL/ SURGICAL HISTORY: Chronic hypertension Depression Hypothyroidism Unsteady gait. She walks with a walker Status post cholecystectomy Status post left sided nephrectomy and right sided ureteral stent placement SOCIAL HISTORY: She quit smoking 28 years ago FAMILY HISTORY: There is no family history of ESRD ALLERGIES: Please see below. HOME MEDICATIONS: Please see below. PHYSICAL EXAMINATION: VITAL SIGNS: Please see below. GEN: Slim build/ well developed/ NAD HEENT: NCAT / lips acyanotic /mucus membranes moist and pink / sclera anicteric CVS: RRR/NMRG/ positive hepatojugular reflux/ +1 bilateral lower extremity edema LUNGS: lungs are clear to auscultation bilaterally on room air ABDOMEN: Contour (flat ) / she has a ventral hernia at the right side of the abdomen/ the abdomen is soft & not tender with palpation MSK/EXTREMITIES: range of motion intact in all 4 extremities NEURO: CN 2-12 are grossly intact / speech is not dysarthric PSYCH: alert and oriented to person place and time ? ( she thought it was Sunday rather than Sunday) / able to understand and follow all commands LABORATORY DATA: See HPI IMAGING: See HPI MICROBIOLOGY: Please see below. ASSESSMENT: Ms. Marroquin an 88 year old female with past medical history of chronic hypertension, depression, hypothyroidism, left-sided nephrectomy, and right- sided hydro-ureter requiring stent placement who was transferred from [facility] for management of left sided hydro-ureteronephrosis, JAMIA, and possible UTI. PLAN: 1. Left-sided hydroureteronephrosis The patient reported that she does not want surgery but her son felt that she may benefit from cystoscopy which they previously discussed with . Plan: Admit to medical floor/Nephrology consult / the patient and her son will discuss the plans for the course of care tonight and the daytime team can follow-up their plan prior to consulting Urology 2. JAMIA Acute Renal Failure Her baseline creatinine was about 0.76 on April 22 2019, today it is 2.46 Her BUN has increased from 9 to 28. Her GFR has dropped from > 60 to 19.7 Plan: Is/Os / IVF / follow up with nephrology / hold potassium supplement & trimeterene-HTCZ to reduce risk of developing hyperkalemia 3. UTI Plan: Follow up repeat UA with urine cultures/c/w Rocephin 4. Chronic hypertension Plan: Metoprolol 5. Depression Plan: resume sertraline 6. Hypothyroidism Plan: Levothyroxine 7. Unsteady gait She walks with a walker DVT PROPHYLAXIS: Heparin DISPOSITION: Home, after more than 2 midnight's stay Vital Signs Vital Signs Date Time Temp Pulse Resp B/P (MAP) Pulse Ox O2 Delivery O2 Flow Rate FiO2 05/21/19 19:05 97.3 68 18 134/60 (84) 95 Room Air Laboratory Tests 05/21/19 17:36: White Blood Count 14.1H, Red Blood Count 3.89L, Hemoglobin 11.8L, Hematocrit 37.5, Mean Corpuscular Volume 96.4H, Mean Corpuscular Hemoglobin 30.3, Mean Corpuscular Hemoglobin Concent 31.5L, Red Cell Distribution Width 14.0, Platelet Count 359, Nucleated Red Blood Cells % (auto) 0.0, Prothrombin Time 14.4H, Prothromb Time International Ratio 1.15, Sodium Level 134L, Potassium Level 4.5, Chloride Level 101, Carbon Dioxide Level 26, Anion Gap 7L, Blood Urea Nitrogen 28H, Creatinine 2.46H, Glomerular Filtration Rate 19.7L, Fasting Glucose 80, Lactic Acid Level 1.1, Calcium Level 9.9, Total Bilirubin 0.4, Aspartate Amino Transf (AST/SGOT) 18, Alanine Aminotransferase (ALT/SGPT) 16, Alkaline Phosphatase 104, Total Protein 6.3L, Albumin 2.6L, Albumin/Globulin Ratio 0.70L, Procalcitonin [Pending] Home Medications Scheduled Levothyroxine Sodium (Synthroid) 75 Mcg Tablet, 75 MCG PO DAILY Magnesium Oxide (Magnesium Oxide) 400 Mg Tablet, 400 MG PO DAILY Metoprolol Tartrate (Metoprolol Tartrate) 50 Mg Tablet, 50 MG PO BID Sertraline HCl (Sertraline HCl) 25 Mg Tablet, 25 MG PO QHS Triamterene/Hydrochlorothiazid (Triamterene-Hctz 37.5-25 mg Cp) 1 Each Capsule, 1 CAP PO DAILY Allergies Coded Allergies: No Known Drug Allergies (Verified Allergy, Unknown, 04/16/19) A-FIB/CHADSVASC A-FIB History Current/History of A-Fib/PAF?: No Current PO Anticoag Therapy: No ELISABETH PAREDES MD May 21, 2019 19:37
--- NOTE | 2019-05-21 20:26 | REP ---
AP PORTABLE CHEST: 05/21/2019. Clinical history: Leukocytosis. Comparison: CT abdomen revealing lung bases, 04/17/2019. Findings: Lungs only marginally adequate in the degree of inflation. There is some curvilinear atelectatic change in the left lateral base. Small effusion difficult to exclude. No dense consolidation with air bronchograms. Some underlying interstitial fibrotic changes are seen. Heart size borderline. There is some left atrial prominence. The aorta is calcified at the arch and tortuous. Airway intact. Some apical pleuroparenchymal scarring bilaterally. Degenerative changes in the right shoulder. Bones demineralized. Impression: 1. Curvilinear atelectatic change periphery left lower lung zone with some diffuse interstitial changes and small effusion difficult to exclude. No dense consolidation. 2. Borderline heart size without danica edema. There is a tortuous calcified aorta intact. Airway intact. 3. Bones demineralized. Electronically Signed by Charles Lan MD 05/21/2019 08:31 P
[2019-05-21 20:54] LABS: HEMATOCRIT 37.5 % (36.0-47.0); HEMOGLOBIN 11.8 g/dl (12.0-15.5); MEAN CORPUSCULAR HEMOGLOBIN 30.3 pg (27.0-33.0); MEAN CORPUSCULAR HGB CONC 31.5 g/dl (32.0-36.5); MEAN CORPUSCULAR VOLUME 96.4 fl (80.0-96.0); PLATELET COUNT, AUTOMATED 359 10^3/uL (150-450); RED BLOOD COUNT 3.89 10^6/uL (4.00-5.40); WHITE BLOOD COUNT 14.1 10^3/uL (4.0-10.0)
[2019-05-21 20:59] LABS: ALBUMIN 2.6 GM/DL (3.2-5.2); BILIRUBIN,TOTAL 0.4 MG/DL (0.2-1.0); CALCIUM LEVEL 9.9 MG/DL (8.8-10.2); CREATININE FOR GFR 2.46 MG/DL (0.55-1.30); GLOMERULAR FILTRATION RATE 19.7 (>32); POTASSIUM SERUM 4.5 MEQ/L (3.5-5.1); TOTAL PROTEIN 6.3 GM/DL (6.4-8.2)
[2019-05-21 21:05] LABS: INR 1.15; PROTHROMBIN TIME 14.4 SECONDS (11.8-14.0)
[2019-05-21] MEDS ORDERED: SERT25TA21 PO (21:41)
[2019-05-21] MEDS ORDERED: MAGN400T2 PO (21:41)
[2019-05-21] MEDS ORDERED: TRIA37.53 PO (21:41)
[2019-05-21] MEDS: METOPROLOL TART 50 MG TAB PO SCH (22:42)
[2019-05-21] MEDS: HEPARIN SOD (PORCINE) 5000 UNITS/ML VIAL (J1644 PER 1000UNITS) SC SCH (22:43)
[2019-05-21] MEDS ORDERED: NS 1,000 ML IV SCH (23:00)
[2019-05-22] MEDS: SERTRALINE HCL 25 MG TABLET PO SCH ×2 (03:38→20:23)
[2019-05-22 06:00] VITALS: BP 126/56
[2019-05-22] MEDS: LEVOTHYROXINE 75MCG TABLET (0.075MG) PO SCH (06:55)
[2019-05-22] MEDS: HEPARIN SOD (PORCINE) 5000 UNITS/ML VIAL (J1644 PER 1000UNITS) SC SCH ×3 (06:55→19:30)
[2019-05-22] MEDS: MAGNESIUM OXIDE 400 MG TAB (MAG-OX) PO SCH (08:53)
[2019-05-22] MEDS: cefTRIAXone SOD 1 GM in D5W MINI-BAG PLUS 50 ML IV SCH (08:53)
[2019-05-22] MEDS: METOPROLOL TART 50 MG TAB PO SCH ×2 (08:54→20:25)
[2019-05-22] MEDS ORDERED: SERTRALINE HCL 50 MG TAB PO SCH (09:00)
--- NOTE | 2019-05-22 09:28 | REP ---
CT of the abdomen pelvis without IV or bowel contrast for nephrolithiasis: Comparison is 04/17/2019. There is no identifiable left kidney. This is unchanged. The patient reportedly has had a left nephrectomy. There has been interval placement of a right ureteral stent. The proximal and distal pigtails are in satisfactory positions in the right renal pelvis and bladder. There is persisting hydronephrosis on the right renal pelvis, calyces and proximal ureter, not significantly changed from the comparison study. The perinephric stranding identified previously has resolved. No renal calculi are identified. Within the visualized lower lung powell. There is a left pleural effusion. This is unchanged. There is ascites surrounding the liver and spleen and in the pelvis. This is unchanged. There is pneumobilia throughout the right and left lobes of the liver. This is unchanged. The the patient has had a cholecystectomy. There are surgical clips in the gallbladder fossa. The pancreas and spleen are unremarkable. The adrenals are unremarkable. Abdominal aorta is unremarkable except for calcified atheroma. There is no periaortic adenopathy or mass. There is no bowel distension or obstruction. The mesentery is unremarkable. There is a fat-containing umbilical hernia as previously. The peritoneal defect measures 4.5 cm. The hernia sac measures 7.4 cm. Pelvis: There are calcified uterine fibroids, compatible with fibroid degeneration. This is unchanged. There is a left hip arthroplasty with beam-hardening significantly obscuring visualization of the pelvis. This is unchanged. There is ascites in the pelvis. The pelvic bowel loops are unremarkable except for diverticulosis of the descending colon and sigmoid colon without diverticulitis. Impression: Left pleural effusion, unchanged. No renal calculi are identified. There has been interval placement of a right ureteral stent with the proximal and distal pigtails in satisfactory locations. There is persisting hydronephrosis of the right renal calyces, pelvis and proximal ureter, unchanged. The previous perinephric stranding has resolved. There is abdominal ascites surrounding the liver, spleen and in the pelvis. There is pneumobilia, unchanged. There are calcified uterine fibroids, unchanged. There is a fat-containing umbilical hernia, unchanged. There is a left nephrectomy. Diverticulosis without diverticulitis. Left hip arthroplasty, unchanged. Electronically Signed by Dionisio Ashton MD 05/22/2019 09:20 A
[2019-05-22 10:12] LABS: HEMOGLOBIN 11.5 g/dl (12.0-15.5); MEAN CORPUSCULAR HEMOGLOBIN 30.5 pg (27.0-33.0); MEAN CORPUSCULAR HGB CONC 31.1 g/dl (32.0-36.5); MEAN CORPUSCULAR VOLUME 98.1 fl (80.0-96.0); PLATELET COUNT, AUTOMATED 353 10^3/uL (150-450); RED BLOOD COUNT 3.77 10^6/uL (4.00-5.40); WHITE BLOOD COUNT 11.7 10^3/uL (4.0-10.0)
[2019-05-22 10:34] LABS: CALCIUM LEVEL 9.9 MG/DL (8.8-10.2); CREATININE FOR GFR 3.29 MG/DL (0.55-1.30); GLOMERULAR FILTRATION RATE 14.1 (>32); POTASSIUM SERUM 4.4 MEQ/L (3.5-5.1)
--- NOTE | 2019-05-22 13:17 | IPNPDOC ---
Text Note Date of Service The patient was seen on 05/22/19. NOTE Subjective: No any acute events overnight. Patient denies any fever, chills, nausea, vomiting, chest pain, palpitations, diarrhea Objective: VITAL SIGNS: Please see below. GENERAL APPEARANCE: not in apparent distress HEENT: Normocephalic, atraumatic. Mucous members moist and pink CARDIOVASCULAR: Regular rate and rhythm. No murmurs, rubs or gallops. Radial pulses are intact. There is no lower extremity edema LUNGS: Diminished lung sounds ABDOMEN: Abdomen is soft and nontender, ventral abdominal hernia MUSCULOSKELETAL: Range of motion is intact in all 4 extremities NEUROLOGICAL: Cranial nerves II-12 are grossly intact. Speech is not dysarthric Patient is 88 years old female with past medical history of chronic hypertension, depression, hypothyroidism, left-sided nephrectomy transferred from [facility] with right-sided hydroureteronephrosis, status post stent placement. Patient stated that she noticed hematuria Right-sided hydroureteronephrosis Status post stent placement CT abdomen/pelvis showed right hydroureteronephrosis Appreciate/agree with urologist consult Hematuria Most likely secondary to stent placement JAMIA baseline creatinine was about 0.76 on April 22 2019 Due to right kidney obstruction UTI Await urine analysis Continue ceftriaxone Gentle hydration 4. Chronic hypertension Blood pressures under control c/w home meds 5. Depression resume sertraline 6. Hypothyroidism Levothyroxine 7. Unsteady gait She walks with a walker VS,Fishhaire, I+O VS, Fishbone, I+O Laboratory Tests 05/21/19 17:36 05/22/19 09:47 Vital Signs Date Time Temp Pulse Resp B/P (MAP) Pulse Ox O2 Delivery O2 Flow Rate FiO2 05/22/19 08:54 65 146/63 05/22/19 06:00 97.4 18 95 05/21/19 19:05 Room Air I&O- Last 24 Hours up to 6 AM 05/22/19 06:00 Intake Total 510 ml Output Total 0 ml Balance 510 ml SUBHASH DOZIER DO May 22, 2019 13:17
[2019-05-22 14:00] VITALS: BP 149/65
[2019-05-22 15:29] LABS: MAGNESIUM LEVEL 2.4 MG/DL (1.8-2.4)
--- NOTE | 2019-05-22 15:38 | SMCUROLCON ---
Urology Consultation General Date of Consultation 05/22/19 Reason For Consultation This patient is seen for JAMIA. History of Present Illness This is an 88 y/o F w/ HTN, hypothyroidism, and a solitary right kidney, transferred in from [facility] yesterday for JAMIA and right hydronephrosis. She is s/p cysto w/ right ureteral stent placement last month for a likely ureteral stricture. She had been well until yesterday when she developed right flank pain and decreased UOP. At this time she denies much flank pain. She denies fevers or chills. She has not had any UOP since admission here. Past Medical History Medical History see HPI Surgical Hstory hx of left nephrectomy, cysto w/ right ureteral stent placement 03/2019 Medications Current Medications Current Medications Medications (Trade) Dose Ordered Sig/Domingo Route PRN Reason Start Time Stop Time Status Last Admin Dose Admin Acetaminophen (Tylenol Tab) 650 mg Q4H PRN PO PAIN OR FEVER 05/21/19 17:45 Ceftriaxone Sodium 1 gm/ Dextrose 50 ml @ 100 mls/hr Q24H IV 05/22/19 09:00 05/22/19 08:53 Heparin Sodium (Porcine) (Heparin) 5,000 units Q8H SC 05/21/19 22:00 05/22/19 13:36 Home Med (Med Rec Complete!) ASDIRECTED XX 05/21/19 22:00 05/21/19 22:00 DC Levothyroxine Sodium (Synthroid) 75 mcg DAILY@06 PO 05/22/19 06:00 05/22/19 06:55 Magnesium Oxide (Mag-Ox) 400 mg DAILY PO 05/22/19 09:00 05/22/19 08:53 Metoprolol Tartrate (Lopressor) 50 mg BID PO 05/21/19 21:00 05/22/19 08:54 Sertraline HCl (Zoloft) 25 mg QHS PO 05/21/19 21:00 05/22/19 03:38 Sertraline HCl (Zoloft) 50 mg DAILY PO 05/22/19 09:00 UNV Sodium Chloride 1,000 ml @ 60 mls/hr [id number] IV 05/21/19 23:00 05/22/19 13:23 DC 05/21/19 22:41 Allergies Allergies: Coded Allergies: No Known Drug Allergies (Verified Allergy, Unknown, 04/16/19) Review of Systems Constitutional: Reports: Weakness Pulmonary: Denies: Dyspnea, Cough Cardiovascular: Denies Chest Pain, Denies Palpitations Gastrointestinal: Denies: Nausea, Vomiting, Abdominal Pain Genitourinary: Reports: Other Symptoms (decreased urine output) Musculoskeletal: Reports: Back Pain (right flank pain) Neurological: Denies: Numbness, Change in Speech Physical Examination General Exam: No Acute Distress Chest Exam: Normal air movement Heart Exam: Regular Rhythm Abdomen Exam: Soft Female Exam catheter in place w/ no urine in bag Skin Exam: Nl turgor and temperature Neuro Exam: Normal Speech Psych Exam: Mental status NL Vital Signs/I&O Vital Signs Date Time Temp Pulse Resp B/P (MAP) Pulse Ox O2 Delivery O2 Flow Rate FiO2 05/22/19 14:00 97.8 58 19 149/65 (93) 94 05/21/19 19:05 Room Air I&O- Last 24 Hours up to 6 AM 05/22/19 06:00 Intake Total 510 ml Output Total 0 ml Balance 510 ml Laboratory Data 24H Labs Laboratory Tests 2 05/21/19 17:36: Nucleated Red Blood Cells % (auto) 0.0, Prothrombin Time 14.4H, Prothromb Time International Ratio 1.15, Anion Gap 7L, Glomerular Filtration Rate 19.7L, Lactic Acid Level 1.1, Calcium Level 9.9, Total Bilirubin 0.4, Aspartate Amino Transf (AST/SGOT) 18, Alanine Aminotransferase (ALT/SGPT) 16, Alkaline Phosphatase 104, Total Protein 6.3L, Albumin 2.6L, Albumin/Globulin Ratio 0.70L, Procalcitonin 0.07 05/22/19 09:47: Nucleated Red Blood Cells % (auto) 0.0, Anion Gap 7L, Glomerular Filtration Rate 14.1L, Calcium Level 9.9 CBC/BMP Laboratory Tests 05/21/19 17:36 05/22/19 09:47 Microbiology Microbiology 05/21/19 Blood Culture, Received Pending 05/21/19 Blood Culture, Received Pending Assessment This is an 88 y/o F w/ moderate to severe R hydronephrosis in a solitary kidney, JAMIA, and a possible UTI. She has not had much if any UOP since arrival. Her Cr is rising, now 3.3. Since her R ureteral stent not adequately draining her kidney, I recommend right percutaneous nephrostomy tube as soon as possible. Plan - recommend right nephrostomy tube placement - patient will likely need this detention - will ultimately remove her stent (likely as an outpatient since it is not working) - will follow LUIS BROWN MD May 22, 2019 15:39
--- NOTE | 2019-05-22 18:18 | CR ---
DATE OF CONSULTATION: 05/22/2019 REQUESTING PHYSICIAN: Dr. Tirado CONSULTING PHYSICIAN: Dr. Lockwood REASON FOR CONSULTATION: Acute kidney injury in this patient with solitary right kidney. CHIEF COMPLAINT: Poor urine output and fatigue. HISTORY OF PRESENT ILLNESS: Florecita Marroquin is known to me from her recent hospitalization in March of this year. She is an 88-year-old female with a past medical history of solitary right kidney, hypertension, history of nephrolithiasis, Graves disease and anxiety. She had a left nephrectomy when she was in her late 20s. She was admitted to [facility] around of 2018 with an acute kidney injury in the setting of contrast-induced nephropathy with obstructive uropathy and hydronephrosis of her solitary kidney. She received supportive care with IV fluids but did not have any improvement in her renal function at that time. On April 21, she had a right ureteral stent placed with prompt improvement of her kidney function and creatinine came down to less than 1, and the patient was subsequently discharged and did follow up in the office with nephrology and urology. Her caregiver recently noted that the patient has been having poor urine output and has been progressively fatigued, and she was subsequently brought to [facility] and found to have an acute kidney injury with creatinine of 2.1 and hydronephrosis of her solitary kidney. She was transferred to [facility]. She has received IV fluids without any improvement in her renal function, and CT scan this morning shows a right ureteral stent, which is in good position with pigtails in the renal pelvis and in the bladder, however, with fullness of the renal collecting system. PAST MEDICAL AND PAST SURGICAL HISTORY: 1. Hypertension. 2. Solitary right kidney, status post left nephrectomy. 3. Depression. 4. Hypothyroidism. 5. Status post cholecystectomy. 6. History of nephrolithiasis requiring urologic intervention in the past. 7. Left hip replacement. 8. Periumbilical hernia. 9. Right ureteral stent. ALLERGIES: No known drug allergies. HOME MEDICATIONS: - levothyroxine 75 mcg by mouth daily - magnesium 400 mg by mouth daily - metoprolol 50 mg by mouth twice a day - sertraline mg by mouth nightly - triamterene hydrochlorothiazide 37.5-25 mg once daily FAMILY HISTORY: There is no family history of end-stage renal disease. REVIEW OF SYSTEMS: Somewhat limited secondary to patient's clinical condition. Constitutional: She denies fevers, chills. There is report of progressive fatigue. Eyes: She denies visual changes or tearing. Ear, Nose, Throat (ENT): She denies epistaxis or rhinorrhea. Cardiac: She denies chest pain, palpitations. There is a complaint of leg edema. Respiratory: She denies shortness of breath. Gastrointestinal: She denies nausea, vomiting or diarrhea. Genitourinary: She reports decreased urine output and hematuria. Musculoskeletal: There is ambulatory dysfunction. She walks with the assistance of a walker. There is no reported acute myalgias or arthralgias. Endocrine: She denies diabetes. There is hypothyroidism. Hematologic: She denies easy bleeding or bruising. Neurologic: She denies seizure, syncope. Psychiatric: There is depression. There is no anxiety. Remainder of review of systems is negative or as per history of the present illness. Vital signs: Temperature 97.4, pulse 62, respiratory rate 18, blood pressure 126/56, saturating 95% on room air. Intake and output are not fully recorded. General: The patient is seen lying in bed in no apparent distress, elderly female. Extraocular muscles are intact. Pupils are equal, round and reactive to light. The tongue is moist. Neck is supple. Jugular veins are mildly elevated. Heart sounds are regular, S1, S2. Lungs are clear to auscultation superiorly. No crackle, rale, or rhonchus. Somewhat diminished at the bases, comfortable on room air. Abdomen is soft and nontender. There is a paraumbilical hernia. There are bowel sounds. There is no suprapubic fullness to suggest distended bladder. Extremities show pedal edema. Neurologic: She is oriented to person, place, situation and cooperates with physical exam and answers simple questions appropriately. Skin: Normal temperature and turgor. LABORATORY: Sodium 134, potassium 4.4, bicarbonate 26, BUN 35, creatinine 3.2, hemoglobin 11.5. CT of the abdomen and pelvis, noncontrast, shows some abdominal ascites, a left pleural effusion, right ureteral stent with pigtails in satisfactory location, and persistent hydronephrosis of the right collecting system and proximal ureter. INPATIENT MEDICATIONS: - normal saline at 60 mL an hour - Rocephin 1 gram IV daily - heparin 5000 units subcu every 8 hours - Synthroid 75 mcg by mouth daily - magnesium oxide 400 mg by mouth daily - metoprolol 50 mg twice a day - sertraline 25 mg by mouth nightly PROBLEMS: 1. Oliguric acute kidney injury in this patient with obstructive uropathy, solitary right kidney with hydroureteronephrosis. This is a recurrent. She had a ureteral stent placed on April 21, 2019 for obstruction of the right kidney. CT scan this morning showed good position of the pigtails in the right renal pelvis and in the bladder; however, there is ongoing fullness of the renal collecting system. Recommend urology consultation. She is receiving gentle IV fluids, and reports she has not passed urine since last night. I have asked nursing staff to place a Encinas catheter. Bladder scan showed about 200 mL of urine. 2. Hypertension. Blood pressures are well controlled. Her home triamterene-hydrochlorothiazide is held in view of recurrent acute kidney injury. She continues on beta rock. 3. Urinary tract infection (UTI). Apparently urinalysis at [facility] was suspicious for UTI, and she has already been on antibiotics. A repeat urinalysis is pending, and she is receiving some gentle IV fluid. Her white count has come down, and she is afebrile, hemodynamically stable. 4. Hypomagnesemia. Magnesium level is added on in view of renal failure. Thank you for involving me in the care of Ms. Marroquin. I will be happy to follow her along with you.
[2019-05-22 19:55] LABS: BILIRUBIN, URINE MANUAL NEGATIVE (NEGATIVE); GLUCOSE, URINE (UA) MANUAL NEGATIVE (NEGATIVE); KETONE, URINE MANUAL NEGATIVE (NEGATIVE); UROBILINOGEN, URINE MANUAL NORMAL (NORMAL)
[2019-05-22 19:57] LABS: RBC, URINE TNTC /hpf (0-3)
[2019-05-22 19:58] LABS: BACTERIA, URINE LARGE AMOUNT; HYALINE CAST, URINE NONE SEEN /lpf (0-1); SQUAMOUS EPITHELIAL CELL URINE SMALL AMOUNT /hpf (SMALL AMT)
[2019-05-22 22:00] VITALS: BP 117/64
[2019-05-23] VITALS (14 sets, daily range): BP systolic 117–147; BP diastolic 47–67
--- NOTE | 2019-05-23 00:56 | ECGEPIP ---
[facility] Test Date: 2019-05-22 Pat Name: RADHA MCCOY Department: Room: [place] [address] Gender: Female Finish Mixer: SENA : [id number] Requested By: MARGO HAWKINS Order Number: [id number] Reading MD: Tre Tolliver Measurements Intervals [place] Rate: 62 P: 41 UT: 130 QRS: -19 QRSD: 98 T: 22 QT: 389 QTc: 395 Interpretive Statements SINUS RHYTHM LOW-VOLTAGE QRS COMPLEXES, BORDERLINE NOTED IN THE LIMB LEADS NONSPECIFIC ST-T ABNORMALITIES NO PRIOR TRACING Electronically Signed on 05-23-2019 0:55:39 EST by Tre Tolliver
[2019-05-23] MEDS: HEPARIN SOD (PORCINE) 5000 UNITS/ML VIAL (J1644 PER 1000UNITS) SC SCH ×3 (04:32→21:41)
[2019-05-23] MEDS: LEVOTHYROXINE 75MCG TABLET (0.075MG) PO SCH (05:28)
[2019-05-23 05:49] LABS: HEMATOCRIT 34.5 % (36.0-47.0); HEMOGLOBIN 10.9 g/dl (12.0-15.5); MEAN CORPUSCULAR HEMOGLOBIN 30.4 pg (27.0-33.0); MEAN CORPUSCULAR HGB CONC 31.6 g/dl (32.0-36.5); MEAN CORPUSCULAR VOLUME 96.1 fl (80.0-96.0); PLATELET COUNT, AUTOMATED 346 10^3/uL (150-450); RED BLOOD COUNT 3.59 10^6/uL (4.00-5.40); WHITE BLOOD COUNT 8.9 10^3/uL (4.0-10.0)
[2019-05-23 06:16] LABS: CALCIUM LEVEL 9.8 MG/DL (8.8-10.2); CREATININE FOR GFR 2.67 MG/DL (0.55-1.30); GLOMERULAR FILTRATION RATE 17.9 (>32); MAGNESIUM LEVEL 2.2 MG/DL (1.8-2.4); POTASSIUM SERUM 3.9 MEQ/L (3.5-5.1)
[2019-05-23] MEDS ORDERED: NS 1,000 ML IV SCH (08:30)
[2019-05-23] MEDS ORDERED: ceFAZolin 1GM INJ (J0690 PER 500MG) As Ordered ONE (09:53)
--- NOTE | 2019-05-23 09:56 | IRMSE ---
[facility] IR Moderate Sedation Eval. Date and Time Date: May 23, 2019 Time: 09:55 ASA Classification ASA Classification: III-Severe systemic dis. Mallampati Score: II NPO: Yes Obstructive Sleep Apnea: No Interval Plan: moderate sedation GIOVANY PILLAI MD May 23, 2019 09:56
[2019-05-23] MEDS ORDERED: diphenhydrAMINE INJ 50MG/ML VIAL (J1200) As Ordered ONE (10:55)
[2019-05-23] MEDS ORDERED: ISOVUE-300 61% 50ML VIAL (Q9967) As Ordered ONE (10:55)
[2019-05-23] MEDS ORDERED: LIDOCAINE 1% MDV 20ML VIAL As Ordered ONE (10:55)
[2019-05-23] MEDS ORDERED: fentaNYL 100 MCG/2 ML INJECTION (J3010) As Ordered ONE (10:55)
[2019-05-23] MEDS ORDERED: MIDAZOLAM INJ 2 MG/2 ML VIAL (J2250) As Ordered ONE (10:56)
--- NOTE | 2019-05-23 11:53 | REP ---
IR Percutaneous nephrostomy catheter placement using fluoroscopy and ultrasound guidance. IR nephrostogram and ureterogram. IR moderate sedation. Ultrasound of the right kidney. Clinical information: Solitary kidney. Failed stent placed in March. Hydronephrosis. Physician: Dr Roach. Procedure: The patient was advised of the benefits, risks and alternatives of the procedure and informed consent was obtained. The time-out was performed with verification of the patient's name, MRN, site of procedure and type of procedure to be performed. The patient was positioned in the prone position on the angiographic table. The site was prepped and draped in the usual sterile fashion. Moderate sedation was performed by the physician including the presence of an independent trained observer who assisted in monitoring the patient's level of consciousness and physiologic status. Following the administration of fentanyl and Versed, the physician spent 45 minutes of face to face time with the patient. A chief deputy court clerk radiograph reveals a right ureteral stent in expected location. The anticipated puncture site on the flank was anesthetized with lidocaine. Using ultrasound guidance, a lower calyx was accessed with a 21 gauge Chiba needle. A nephrostogram and ureterogram was performed demonstrating hydronephrosis. An 018 wire was then advanced into the collecting system. The needle was then exchanged for a non vascular introducer set. An Amplatz wire was then advanced into the ureter. An 8-Chinese nephrostomy catheter was then advanced into the renal collecting system. The pigtail was formed and locked in position. A final nephrostogram ureterogram was performed confirming position of the pigtail in the renal pelvis and hydronephrosis. The ureter is not patent to the bladder. The catheter was sutured in position with 2-0 Prolene and a sterile dressing was applied. The catheter was placed gravity drainage. The patient tolerated the procedure well and was returned to the PRU in stable condition. EBL: < 5 ml. Complications: None. Conclusion: 1. Nephrostogram and ureterogram demonstrate hydronephrosis and ureteral obstruction. 2. Successful right-sided nephrostomy catheter placement. Patient to follow up in IR in 12 weeks for routine catheter exchange. 3. Patient to follow up with urology for cystoscopy and stent removal. Thank you for this referral. Electronically Signed by Lyndsay Roach MD 05/23/2019 11:52 A
[2019-05-23] MEDS ORDERED: ONDANSETRON 4MG/2ML VIAL (J2405) IV PRN (13:15)
[2019-05-23] MEDS: cefTRIAXone SOD 1 GM in D5W MINI-BAG PLUS 50 ML IV SCH (13:41)
[2019-05-23] MEDS: MAGNESIUM OXIDE 400 MG TAB (MAG-OX) PO SCH (13:41)
[2019-05-23] MEDS: METOPROLOL TART 50 MG TAB PO SCH ×2 (13:42→21:41)
--- NOTE | 2019-05-23 14:25 | IPNPDOC ---
Text Note Date of Service The patient was seen on 05/23/19. NOTE Subjective: Patient complains of stools bowel movements overnight. Right neph rostomy was placed today She denies fever, chills, nausea, vomiting, chest pain, palpitations Objective: VITAL SIGNS: Please see below. GENERAL APPEARANCE: not in apparent distress HEENT: Normocephalic, atraumatic. Mucous members moist and pink CARDIOVASCULAR: Regular rate and rhythm. No murmurs, rubs or gallops. Radial pulses are intact. There is no lower extremity edema LUNGS: Diminished lung sounds ABDOMEN: Abdomen is soft and nontender, ventral abdominal hernia MUSCULOSKELETAL: Range of motion is intact in all 4 extremities NEUROLOGICAL: Cranial nerves II-12 are grossly intact. Speech is not dysarthric Patient is 88 years old female with past medical history of chronic hypertension, depression, hypothyroidism, left-sided nephrectomy transferred from [facility] with right-sided hydroureteronephrosis, status post stent placement. Patient stated that she noticed hematuria Right-sided hydroureteronephrosis Status post stent placement CT abdomen/pelvis showed right hydroureteronephrosis urologist team recommended nephrostomy placement Right nephrostomy was placed today Hematuria Most likely secondary to stent placement JAMIA Slightly improved today baseline creatinine was about 0.76 on April 22 2019 Due to right kidney obstruction UTI UA shows pyuria with hematuria Continue ceftriaxone Gentle hydration 4. Chronic hypertension Blood pressures under control c/w home meds 5. Depression resume sertraline 6. Hypothyroidism Levothyroxine 7. Unsteady gait She walks with a walker PT/Ot VS,Fishbone, I+O VS, Fishbone, I+O Laboratory Tests 05/23/19 05:20 Vital Signs Date Time Temp Pulse Resp B/P (MAP) Pulse Ox O2 Delivery O2 Flow Rate FiO2 05/23/19 13:42 66 139/66 05/23/19 12:42 96.5 25 92 Room Air 05/23/19 12:15 2 I&O- Last 24 Hours up to 6 AM 05/23/19 06:00 Intake Total 690 ml Output Total 915 ml Balance -225 ml SUBHASH DOZIER DO May 23, 2019 14:25
--- NOTE | 2019-05-23 17:59 | IPNPDOC ---
Subjective Review oF Systems Chief Complaint The patient is a 88-year-old female admitted with a reason for visit of JAMIA. Events since Last Encounter No acute events. Patient denies pain. No n/v. Objective Physical Examination General Exam: Alert, Cooperative, No Acute Distress Skin Exam: Nl turgor and temperature Psych Exam: Mental status NL, Mood NL Other physical findings right percutaneous nephrostomy tube draining clear urine; catheter w/ only a small amount of tea colored urine in the bag Vital Signs/I&O Vital Signs Date Time Temp Pulse Resp B/P (MAP) Pulse Ox O2 Delivery O2 Flow Rate FiO2 05/23/19 16:45 97.9 59 22 142/66 (91) 94 Room Air 05/23/19 12:15 2 I&O- Last 24 Hours up to 6 AM 05/23/19 06:00 Intake Total 690 ml Output Total 915 ml Balance -225 ml Laboratory Data Labs 24H Laboratory Tests 2 05/22/19 19:06: Urine Color (LISSETH) AMBERH, Urine Appearance (LISSETH) CLOUDYH, Urine pH (LISSETH) 7.0, Urine Specific [place] (LISSETH) 1.000L, Urine Protein 3+H, Bedside Urine Glucose (UA) NEGATIVE, Bedside Urine Ketones (LAB) NEGATIVE, Bedside Urine Blood POSITIVEH, Bedside Urine Nitrite (LAB) NEGATIVE, Bedside Urine Bilirubin (LAB) NEGATIVE, Bedside Urine Urobilinogen (LAB) NORMAL, Bedside Urine Leukocyte Esterase (L POSITIVEH, Urine Sediment Examination PERFORMED, Urine RBC TNTCH, Urine WBC TNTCH, Urine Squamous Epithelial Cells SMALL AMOUNT, Urine Bacteria LARGE AMOUNTH, Urine Hyaline Casts NONE SEEN 05/23/19 05:20: Nucleated Red Blood Cells % (auto) 0.0, Anion Gap 6L, Glomerular Filtration Rate 17.9L, Calcium Level 9.8, Magnesium Level 2.2 CBC/BMP Laboratory Tests 05/23/19 05:20 Microbiology Microbiology 05/22/19 Urine Culture - Final, Complete 05/21/19 Blood Culture - Preliminary, Resulted No growth after 24 hours . All specim... 05/21/19 Blood Culture - Preliminary, Resulted No growth after 24 hours . All specim... Assessment/Plan Date Seen The patient was seen on 05/23/19. Patient Summary This is an 88 y/o F w/ moderate to severe R hydronephrosis in a solitary kidney and JAMIA, now s/p right percutaneous nephrostomy tube placement today. UOP from the nephrostomy tube is clear. Plan/VTE VTE Prophylaxis Ordered?: Yes VTE Exclusion Mechanical Proph: N/A:VTE Prophy Ordered Plan - nephrostomy tube to gravity drainage - ok to d/c catheter as the majority of the urine will come out the nephrostomy tube - will arrange follow up in urology clinic for cystoscopy and stent removal in a few wks LUIS BROWN MD May 23, 2019 17:59
[2019-05-23] MEDS: SERTRALINE HCL 25 MG TABLET PO SCH (21:40)
[2019-05-24 02:45] VITALS: BP 119/48
[2019-05-24] MEDS: LEVOTHYROXINE 75MCG TABLET (0.075MG) PO SCH (05:39)
[2019-05-24] MEDS: HEPARIN SOD (PORCINE) 5000 UNITS/ML VIAL (J1644 PER 1000UNITS) SC SCH ×3 (05:39→21:39)
[2019-05-24 06:00] VITALS: BP 139/60
[2019-05-24 06:46] LABS: HEMATOCRIT 35.3 % (36.0-47.0); MEAN CORPUSCULAR HGB CONC 31.2 g/dl (32.0-36.5); MEAN CORPUSCULAR VOLUME 96.2 fl (80.0-96.0); PLATELET COUNT, AUTOMATED 327 10^3/uL (150-450); RED BLOOD COUNT 3.67 10^6/uL (4.00-5.40); WHITE BLOOD COUNT 7.5 10^3/uL (4.0-10.0)
[2019-05-24 07:13] LABS: CREATININE FOR GFR 1.4 MG/DL (0.55-1.30); GLOMERULAR FILTRATION RATE 37.7 (>32); MAGNESIUM LEVEL 1.9 MG/DL (1.8-2.4); POTASSIUM SERUM 3.2 MEQ/L (3.5-5.1)
[2019-05-24] MEDS: MAGNESIUM OXIDE 400 MG TAB (MAG-OX) PO SCH (09:21)
[2019-05-24] MEDS: METOPROLOL TART 50 MG TAB PO SCH ×2 (09:22→21:39)
[2019-05-24] MEDS: cefTRIAXone SOD 1 GM in D5W MINI-BAG PLUS 50 ML IV SCH (09:22)
[2019-05-24 10:00] VITALS: BP 140/62
--- NOTE | 2019-05-24 13:32 | IPNPDOC ---
Text Note Date of Service The patient was seen on 05/24/19. NOTE Subjective: No any acute events overnight. She denies fever, chills, nausea, vomiting, chest pain, palpitations Objective: VITAL SIGNS: Please see below. GENERAL APPEARANCE: not in apparent distress HEENT: Normocephalic, atraumatic. Mucous members moist and pink CARDIOVASCULAR: Regular rate and rhythm. No murmurs, rubs or gallops. Radial pulses are intact. There is no lower extremity edema LUNGS: Diminished lung sounds ABDOMEN: Abdomen is soft and nontender, ventral abdominal hernia, nephrostomy in place, yellow urine in the bag MUSCULOSKELETAL: Range of motion is intact in all 4 extremities NEUROLOGICAL: Cranial nerves II-12 are grossly intact. Speech is not dysarthric Patient is 88 years old female with past medical history of chronic hypertension, depression, hypothyroidism, left-sided nephrectomy transferred from [facility] with right-sided hydroureteronephrosis, status post stent placement. Patient stated that she noticed hematuria Right-sided hydroureteronephrosis Status post stent placement CT abdomen/pelvis showed right hydroureteronephrosis urologist team recommended nephrostomy placement Right nephrostomy was placed on 05/24/19 Follow-up with urologist in the outpatient settings Hematuria Most likely secondary to stent placement JAMIA improved today baseline creatinine was about 0.76 on April 22 2019 Due to right kidney obstruction UTI UA shows pyuria with hematuria Continue ceftriaxone Gentle hydration Urine culture no growth Chronic hypertension Blood pressures under control c/w home meds Depression resume sertraline Hypothyroidism Levothyroxine Unsteady gait She walks with a walker PT/OT Await PT/OT clearance VS,Fishbone, I+O VS, Fishbone, I+O Laboratory Tests 05/24/19 06:24 Vital Signs Date Time Temp Pulse Resp B/P (MAP) Pulse Ox O2 Delivery O2 Flow Rate FiO2 05/24/19 10:00 98.0 60 16 140/62 (88) 93 Room Air 05/23/19 12:15 2 I&O- Last 24 Hours up to 6 AM 05/24/19 05:59 Intake Total 710 ml Output Total 1195 ml Balance -485 ml SUBHASH DOZIER DO May 24, 2019 13:32
[2019-05-24 14:00] VITALS: BP 142/60
[2019-05-24] MEDS ORDERED: POTASSIUM CHLORIDE 10 MEQ SR TABLET PO ONE (14:30)
--- NOTE | 2019-05-24 17:16 | IPN ---
DATE: 05/24/2019 Mrs. Marroquin is seen this morning on her bedside. She is sitting in the chair at the time of my visit. Her son is present in the room along with his . Patient had a nephrostomy tube placed yesterday due to recurrent hydronephrosis despite a ureteral stent in her solitary right kidney. She is feeling well this morning and denies any fever, chills, nausea, vomiting, dyspnea or chest pain. PHYSICAL EXAMINATION: Temperature 98 degrees Fahrenheit, heart rate 60 per minute and respiratory rate 16 per minute. Blood pressure 140/62 mmHg and oxygen saturation 93% on room air. Head is atraumatic. Neck is supple and without jugular venous distention (JVD) or thyroid enlargement. Heart sounds are regular and lungs sound clear to auscultation. Abdomen soft and nontender. A large paraumbilical hernia is noticed. She has a nephrostomy in her right kidney now. Extremities have no cyanosis or clubbing. Neurologically, she seems to be grossly intact. Today's labs show sodium 138, potassium 3.2, CO2 21, BUN 32 and creatinine 1.40. Glucose 65 and calcium 9.0. WBC count 7.5, hemoglobin 11.0 and hematocrit 35.3. PROBLEMS: 1. Acute renal failure superimposed on chronic kidney disease. Patient had hydronephrosis in her solitary right kidney. She has prior history of ureteral stent and now underwent a nephrostomy tube placement yesterday. Kidney function has improved significantly. 2. Hypokalemia. She has already received a dose of potassium chloride 40 mEq today, which will help to correct her hypokalemia. She should remain on regular diet. 3. Anemia. Her anemia is mild and stable. Does not need any urgent intervention. 4. Urinary tract infection (UTI). Patient has history of recurrent UTI. She has a ureteral stent in her right kidney. She now has a nephrostomy tube placed and is being treated with ceftriaxone. From a renal standpoint, the patient is doing very well. We will see how her labs are tomorrow.
[2019-05-24 18:00] VITALS: BP 141/62
[2019-05-24] MEDS: SERTRALINE HCL 25 MG TABLET PO SCH (21:39)
[2019-05-24 22:00] VITALS: BP 122/64
[2019-05-24] MEDS ORDERED: LOPERAMIDE 2 MG CAPLET PO PRN (22:00)
[2019-05-24] MEDS ORDERED: LOPERAMIDE 2 MG CAPLET PO ONE (22:00)
[2019-05-25 02:00] VITALS: BP 116/56
[2019-05-25] MEDS: LEVOTHYROXINE 75MCG TABLET (0.075MG) PO SCH (05:32)
[2019-05-25] MEDS: HEPARIN SOD (PORCINE) 5000 UNITS/ML VIAL (J1644 PER 1000UNITS) SC SCH ×3 (05:32→22:24)
[2019-05-25 06:00] VITALS: BP 136/54
[2019-05-25 06:29] LABS: HEMATOCRIT 34.5 % (36.0-47.0); HEMOGLOBIN 11.2 g/dl (12.0-15.5); MEAN CORPUSCULAR HEMOGLOBIN 30.8 pg (27.0-33.0); MEAN CORPUSCULAR HGB CONC 32.5 g/dl (32.0-36.5); MEAN CORPUSCULAR VOLUME 94.8 fl (80.0-96.0); PLATELET COUNT, AUTOMATED 368 10^3/uL (150-450); RED BLOOD COUNT 3.64 10^6/uL (4.00-5.40); WHITE BLOOD COUNT 7.9 10^3/uL (4.0-10.0)
[2019-05-25 06:52] LABS: CALCIUM LEVEL 9.7 MG/DL (8.8-10.2); CREATININE FOR GFR 1.11 MG/DL (0.55-1.30); GLOMERULAR FILTRATION RATE 49.3 (>32); MAGNESIUM LEVEL 1.6 MG/DL (1.8-2.4); POTASSIUM SERUM 3.6 MEQ/L (3.5-5.1)
[2019-05-25] MEDS ORDERED: POTASSIUM CHLORIDE 10 MEQ SR TABLET PO ONE (07:45)
[2019-05-25] MEDS: MAGNESIUM OXIDE 400 MG TAB (MAG-OX) PO SCH (08:25)
[2019-05-25] MEDS: cefTRIAXone SOD 1 GM in D5W MINI-BAG PLUS 50 ML IV SCH (08:25)
[2019-05-25] MEDS: METOPROLOL TART 50 MG TAB PO SCH ×2 (08:25→20:20)
[2019-05-25 10:00] VITALS: BP 134/54
--- NOTE | 2019-05-25 13:19 | IPNPDOC ---
Text Note Date of Service The patient was seen on 05/25/19. NOTE Subjective: No any acute events overnight. She denies fever, chills, nausea, vomiting, chest pain, palpitations Objective: VITAL SIGNS: Please see below. GENERAL APPEARANCE: not in apparent distress HEENT: Normocephalic, atraumatic. Mucous members moist and pink CARDIOVASCULAR: Regular rate and rhythm. No murmurs, rubs or gallops. Radial pulses are intact. There is no lower extremity edema LUNGS: Diminished lung sounds ABDOMEN: Abdomen is soft and nontender, ventral abdominal hernia, nephrostomy in place, yellow urine in the bag MUSCULOSKELETAL: Range of motion is intact in all 4 extremities NEUROLOGICAL: Cranial nerves II-12 are grossly intact. Speech is not dysarthric Patient is 88 years old female with past medical history of chronic hypertension, depression, hypothyroidism, left-sided nephrectomy transferred from [facility] with right-sided hydroureteronephrosis, status post stent placement. Patient stated that she noticed hematuria. CT abdomen/pelvis showed right hydroureteronephrosis urologist team recommended nephrostomy placement . Right nephrostomy was placed on 05/24/19. Await PT/OT clearance Right-sided hydroureteronephrosis Status post stent placement CT abdomen/pelvis showed right hydroureteronephrosis urologist team recommended nephrostomy placement Right nephrostomy was placed on 05/24/19 Follow-up with urologist in the outpatient settings Hematuria Most likely secondary to stent placement JAMIA improved today baseline creatinine was about 0.76 on April 22 2019 Due to right kidney obstruction UTI UA shows pyuria with hematuria Continue ceftriaxone Gentle hydration Urine culture no bacterial growth Chronic hypertension Blood pressures under control c/w home meds Depression resume sertraline Hypothyroidism Levothyroxine Unsteady gait She walks with a walker PT/OT Await PT/OT clearance VS,Fishbone, I+O VS, Fishbone, I+O Laboratory Tests 05/25/19 05:57 Vital Signs Date Time Temp Pulse Resp B/P (MAP) Pulse Ox O2 Delivery O2 Flow Rate FiO2 05/25/19 10:00 97.8 66 17 134/54 (80) 93 Room Air 05/23/19 12:15 2 I&O- Last 24 Hours up to 6 AM 05/25/19 06:00 Intake Total 640 ml Output Total 425 ml Balance 215 ml DROZHZHIN,SUBHASH DO May 25, 2019 13:19
[2019-05-25 14:00] VITALS: BP 134/50
--- NOTE | 2019-05-25 17:41 | IPN ---
DATE: 05/25/2019 Mrs. Marroquin is seen this morning on her bedside. Her son is present in the room and patient is lying in the bed with head end elevated. He reports that yesterday she did walk with the help of physical therapist. She is waiting for clearance to go home. The patient is weak and mostly in the bed. She denies any nausea, vomiting, dyspnea or chest pain. Her right nephrostomy is draining slightly blood-tinged urine. PHYSICAL EXAMINATION: Temperature 97.8 degrees Fahrenheit, heart rate 66 per minute and respiratory rate 18 per minute. Blood pressure 134/54 mmHg and oxygen saturation 93% on room air. Head is atraumatic. Neck supple and without jugular venous distention (JVD) or thyroid enlargement. Heart sounds regular and lungs clear to auscultation. Abdomen soft and nontender. Right-sided nephrostomy tube is intact on her right lower back. Extremities have no cyanosis or clubbing. Neurologically, she is at her baseline mentation without a focal deficit. Today's labs show a WBC count 7.9, hemoglobin 11.2 and hematocrit 34.5. Sodium 138, potassium 3.6, BUN 27 and creatinine 1.211. Calcium 9.7 and magnesium 1.6. PROBLEMS: 1. Acute renal failure superimposed on chronic kidney disease. Patient has solitary right kidney with recurrent obstruction due to ureteral strictures. She now has a nephrostomy tube in place and kidney function has improved significantly. I do not feel that daily labs are now needed. She can follow up as an outpatient in our clinic. 2. Hypokalemia related to poor oral intake and has already improved. The patient is being encouraged to increase her oral intake of protein. 3. Anemia. Her anemia is stable and does not need any intervention. DISPOSITION: From a renal standpoint, she is ready for discharge and follow up as an outpatient. I am signing off the case at present. Please do not hesitate to call me back should you need any further assistance.
[2019-05-25] MEDS: SERTRALINE HCL 25 MG TABLET PO SCH (20:20)
[2019-05-25 22:00] VITALS: BP 135/54
[2019-05-26 06:00] VITALS: BP 140/64
[2019-05-26] MEDS: LEVOTHYROXINE 75MCG TABLET (0.075MG) PO SCH (06:04)
[2019-05-26] MEDS: HEPARIN SOD (PORCINE) 5000 UNITS/ML VIAL (J1644 PER 1000UNITS) SC SCH ×3 (06:04→21:18)
[2019-05-26 06:24] LABS: HEMATOCRIT 33.4 % (36.0-47.0); HEMOGLOBIN 10.9 g/dl (12.0-15.5); MEAN CORPUSCULAR HEMOGLOBIN 31.1 pg (27.0-33.0); MEAN CORPUSCULAR HGB CONC 32.6 g/dl (32.0-36.5); MEAN CORPUSCULAR VOLUME 95.4 fl (80.0-96.0); PLATELET COUNT, AUTOMATED 315 10^3/uL (150-450)
[2019-05-26 06:52] LABS: BLOOD UREA NITROGEN 22 MG/DL (7-18); CARBON DIOXIDE LEVEL 26 MEQ/L (21-32); CHLORIDE LEVEL 111 MEQ/L (98-107); CREATININE FOR GFR 0.81 MG/DL (0.55-1.30); GLOMERULAR FILTRATION RATE > 60.0 (>32); GLUCOSE, FASTING 92 MG/DL (70-100); MAGNESIUM LEVEL 1.3 MG/DL (1.8-2.4); POTASSIUM SERUM 4.3 MEQ/L (3.5-5.1); SODIUM LEVEL 141 MEQ/L (136-145)
[2019-05-26] MEDS ORDERED: MAG SULF 1GM/100ML (MAG RUN) 1 GM in IV 1 EA IV ONE ×2 (09:00→11:00)
[2019-05-26] MEDS: MAGNESIUM OXIDE 400 MG TAB (MAG-OX) PO SCH (09:19)
[2019-05-26] MEDS: METOPROLOL TART 50 MG TAB PO SCH ×2 (09:25→21:17)
[2019-05-26 10:00] VITALS: BP 115/66
--- NOTE | 2019-05-26 11:10 | IPN ---
DATE OF SERVICE: 05/26/2019 The patient this morning has no complaints of chest pain, pressure, tightness, shortness of breath. Nephrostomy tube is pink-tinged, according to nursing, was clear this morning, turned pink-tinged, and remained that way for now. The patient's son at the bedside who is retired says that they have two caregivers, one that stays until noon, the other at 6 p.m. to put her to bed. He says that one is a retired nurse. The other one has been a home caregiver for some time. Afebrile. No chills overnight. Discharge plan is in 2-3 days once care at home has been finalized. Temperature 98.1, pulse 68, respiratory rate 18, blood pressure 140/64, 92% on room air. Generally, awake, alert, oriented to person and place. Answering questions appropriately. Lungs are clear. No wheezing or rales. Heart: S1, S2, sinus. Abdomen: Is soft, nontender. Right nephrostomy noted, blood-tinged. LABORATORY DATA: White count 7, hemoglobin 10, hematocrit 33, platelet count 315. Sodium 141, potassium 4.3, chloride 111, bicarbonate 26, BUN 22, creatinine 0.8, glucose 92. ASSESSMENT AND PLAN: This is an 88-year-old female with history of solitary right kidney, status post left nephrectomy, hypertension, depression, hypothyroidism, cholecystectomy, recurrent nephrolithiasis, left hip replacement, periumbilical hernia, right ureteral stent, presented with acute kidney injury, fatigue, and decreased urine output. Was found to have acute kidney injury, creatinine 2.1, and hydronephrosis of her solitary kidney, transferred to [facility], status post right ureteral stent by Dr. Scott on 05/23/2019. The patient's creatinine is currently back to baseline. IMPRESSION: 1. Right hydroureteronephrosis, status post stent placement. Urology, Dr. Scott, status post right nephrostomy tube, requires drainage once or twice a day. Followup with urologist as outpatient. The patient's caregivers will need to be taught on how to drain. Currently, urine culture is negative. Antibiotics have been discontinued. 2. Possible antibiotic-induced diarrhea. The patient has about three bowel movements daily. No signs of Clostridium (C) difficile. Continue to monitor for now for electrolyte abnormalities and hypovolemia. 3. Hematuria secondary to stent placement. 4. Acute kidney injury due to right-sided hydroureteronephrosis, status post right nephrostomy tube placement by urologist, Dr. Scott. The patient's creatinine is back to baseline. 5. History of solitary kidney, managed by nephrology, Dr. Lockwood. 6. Abnormal urinalysis with negative urine culture. Antibiotics have been discontinued. 7. Hypertension. Currently under control. 8. Hypothyroidism. On chronic levothyroxine. 9. Deconditioning. Physical therapy (PT) has been consulted. 10. Depression. On chronic sertraline. DISPOSITION: 1-2 days once cleared by physical therapy. MTDD
[2019-05-26 14:00] VITALS: BP_SYST 115; BP_SYST 130; BP_DIAS 63; BP_DIAS 66
[2019-05-26 18:00] VITALS: BP 114/57
[2019-05-26] MEDS: SERTRALINE HCL 25 MG TABLET PO SCH (21:17)
[2019-05-26 22:00] VITALS: BP 117/64
[2019-05-27] MEDS: HEPARIN SOD (PORCINE) 5000 UNITS/ML VIAL (J1644 PER 1000UNITS) SC SCH ×3 (05:38→21:06)
[2019-05-27] MEDS: LEVOTHYROXINE 75MCG TABLET (0.075MG) PO SCH (05:38)
[2019-05-27 06:00] VITALS: BP 135/65
[2019-05-27 06:39] LABS: HEMATOCRIT 33.9 % (36.0-47.0); HEMOGLOBIN 11.1 g/dl (12.0-15.5); MEAN CORPUSCULAR HEMOGLOBIN 31.1 pg (27.0-33.0); MEAN CORPUSCULAR HGB CONC 32.7 g/dl (32.0-36.5); PLATELET COUNT, AUTOMATED 325 10^3/uL (150-450); RED BLOOD COUNT 3.57 10^6/uL (4.00-5.40); WHITE BLOOD COUNT 7.2 10^3/uL (4.0-10.0)
[2019-05-27 07:05] LABS: BLOOD UREA NITROGEN 18 MG/DL (7-18); CALCIUM LEVEL 9.1 MG/DL (8.8-10.2); CARBON DIOXIDE LEVEL 27 MEQ/L (21-32); CHLORIDE LEVEL 109 MEQ/L (98-107); CREATININE FOR GFR 0.75 MG/DL (0.55-1.30); GLOMERULAR FILTRATION RATE > 60.0 (>32); GLUCOSE, FASTING 89 MG/DL (70-100); MAGNESIUM LEVEL 1.8 MG/DL (1.8-2.4); POTASSIUM SERUM 4.1 MEQ/L (3.5-5.1); SODIUM LEVEL 139 MEQ/L (136-145)
[2019-05-27] MEDS: METOPROLOL TART 50 MG TAB PO SCH ×2 (09:00→20:19)
[2019-05-27] MEDS: MAGNESIUM OXIDE 400 MG TAB (MAG-OX) PO SCH (09:10)
--- NOTE | 2019-05-27 12:09 | IPN ---
DATE: 05/27/2019 Patient is unable to care for her nephrostomy tube at home and previously had two caregivers, however the son states that he is unable to provide 24/7 care at home and will need a third person to assist. He is requesting for potential placement. Patient otherwise denies any dysuria, urgency or frequency. She has a nephrostomy tube that is actively draining. No fevers or chills. No complaints of pain this morning. No nausea, vomiting. Balance is still an issue. She is still very frail and requires one person assistance with getting up, ambulation. VITAL SIGNS: Temperature 98, pulse 88, respiratory rate 18, blood pressure 135/65, 95% on room air. Generally, patient is awake, alert and oriented to herself only, answering questions appropriately, very hard of hearing. No jugular venous distention (JVD) or thyromegaly. Moist mucous membranes. Lungs diminished, but clear. Heart S1, S2 sinus rhythm. Abdomen is soft, nontender, nondistended. Nephrostomy tube nontender. Extremities no cyanosis or clubbing. CURRENT MEDICATIONS:: - loperamide - Zofran - MagOx - Synthroid - heparin - sertraline - metoprolol - acetaminophen LABORATORY DATA: White count 7.3, hemoglobin 11, hematocrit 33, platelet count 325. Sodium 139, potassium 4, chloride 109, bicarb 27, BUN 18, creatinine 0.75, glucose of 89, magnesium 1.8. Urine culture 130, no growth. ASSESSMENT/PLAN: This is an 88-year-old who lives alone with two caregivers, unable to provide 24/7 care, status post nephrostomy tube due to acute kidney injury from recurrent nephrolithiasis. She has history of solitary right kidney status post left nephrectomy, hypertension, depression, hypothyroidism, cholecystectomy, recurrent nephrolithiasis, left hip replacement, right ureteral stent, who was admitted due to acute kidney injury, decreased urine output, was found to have hydronephrosis of her solitary kidney with an admission creatinine of 2.1 status post right ureteral stent by Dr. Scott on 05/23/2019. The patient's creatinine is back to baseline. IMPRESSION: 1. Right hydroureteronephrosis status post stent placement. Per urology the patient's right nephrostomy tube requires drainage once or twice a day, and followup as outpatient. The patient is unable to provide this type of care at home and will be unable to do this herself. Son is requesting for placement. Patient and family services (PFS) has been consulted. Since the patient is medically stable and urine culture is negative, the patient's antibiotics have been discontinued and she has been changed to ALC status. 2. Antibiotic induced diarrhea. The patient has had three bowel movement that were loose, no signs of C. Difficile. Continue to monitor for electrolyte disturbances and supplement as needed. 3. Hematuria secondary to recent stent placement. Hemoglobin and hematocrit appears to be stable. No other further changes in management. 4. Acute kidney injury. Resolved. Due to right sided hydroureteronephrosis status post right nephrostomy tube and right stent placement by Dr. Scott. The patient's creatinine is back to baseline. 5. Abnormal urinalysis. Had negative urine culture. Therefore the patient's ceftriaxone has been discontinued. 6. Hypertension. Currently well controlled on her metoprolol but with episodes of hypotension with systolic pressure 98. No complaints of lightheadedness, dizziness or near syncopal episode. Holding parameters have been placed on the metoprolol. 7. Hypothyroidism. On chronic levothyroxine. 8. Deconditioning. The patient has not cleared physical therapy. She has been changed to ALC status while awaiting placement. MIRIAMD
[2019-05-27 14:00] VITALS: BP 120/68
[2019-05-27] MEDS: SERTRALINE HCL 25 MG TABLET PO SCH (20:19)
[2019-05-27 22:00] VITALS: BP 132/70
[2019-05-28] MEDS: LEVOTHYROXINE 75MCG TABLET (0.075MG) PO SCH (05:58)
[2019-05-28] MEDS: HEPARIN SOD (PORCINE) 5000 UNITS/ML VIAL (J1644 PER 1000UNITS) SC SCH (05:58)
[2019-05-28 06:00] VITALS: BP 116/56
[2019-05-28 06:50] LABS: HEMATOCRIT 34.7 % (36.0-47.0); HEMOGLOBIN 10.7 g/dl (12.0-15.5); MEAN CORPUSCULAR HEMOGLOBIN 29.8 pg (27.0-33.0); MEAN CORPUSCULAR HGB CONC 30.8 g/dl (32.0-36.5); MEAN CORPUSCULAR VOLUME 96.7 fl (80.0-96.0); PLATELET COUNT, AUTOMATED 285 10^3/uL (150-450); RED BLOOD COUNT 3.59 10^6/uL (4.00-5.40); WHITE BLOOD COUNT 7.1 10^3/uL (4.0-10.0)
[2019-05-28 07:15] LABS: BLOOD UREA NITROGEN 15 MG/DL (7-18); CALCIUM LEVEL 8.5 MG/DL (8.8-10.2); CARBON DIOXIDE LEVEL 25 MEQ/L (21-32); CHLORIDE LEVEL 111 MEQ/L (98-107); CREATININE FOR GFR 0.73 MG/DL (0.55-1.30); GLOMERULAR FILTRATION RATE > 60.0 (>32); GLUCOSE, FASTING 81 MG/DL (70-100); MAGNESIUM LEVEL 1.6 MG/DL (1.8-2.4); POTASSIUM SERUM 4.1 MEQ/L (3.5-5.1); SODIUM LEVEL 141 MEQ/L (136-145)
[2019-05-28 08:24] VITALS: BP 122/57
[2019-05-28] MEDS: MAGNESIUM OXIDE 400 MG TAB (MAG-OX) PO SCH (08:24)
[2019-05-28] MEDS: METOPROLOL TART 50 MG TAB PO SCH (08:24)
--- NOTE | 2019-05-28 20:25 | DSES ---
DATE OF ADMISSION: 05/21/2019 DATE OF DISCHARGE: 05/28/2019 CONSULTANTS: Urologist, Dr. Scott. Grant Writer, Dr. Lockwood. Interventional radiology, Dr. Roach. PROCEDURES DURING THIS ADMISSION: 1. 05/23/[address] Dr[address] Roach. PRIMARY DISCHARGE DIAGNOSES: 1. Moderate to severe right hydronephrosis and solitary kidney and acute kidney injury, status post right percutaneous nephrostomy tube placement. 2. Oliguric acute kidney injury. 3. Obstructive uropathy. 4. Hydroureteronephrosis, recurrent. 5. Hypertension. 6. Urinary tract infection (UTI) present on admission and treated at [facility]. 7. Hypomagnesemia. 8. Hypothyroidism. 9. Hypertension. 10. Depression. 11. Dementia. DISCHARGE MEDICATIONS: - Levothyroxine 75 mcg daily - magnesium oxide 400 mg daily - metoprolol 50 mg twice a day - sertraline 25 mg at night DISCHARGE INSTRUCTIONS: The patient is to discontinue triamterene/hydrochlorothiazide due to recent acute kidney injury with a solitary kidney. The patient is to followup with Dr. David Lockwood sales assistant institutional sales, urologist Dr. Scott, and primary care provider within 7 days of hospital discharge. HOSPITAL COURSE: This is an 88-year-old female who presented with a history of solitary kidney, status post left nephrectomy due to history of nephrolithiasis, requiring several urologic interventions in the past, depression, hypertension, hypothyroidism, hard of hearing, left hip replacement, dementia, who was admitted due to poor urine output and fatigue. The patient was found to have acute kidney injury and solitary right kidney. She was [facility] for a [facility] ([facility]. She presented to [facility] with creatinine of 2.1, hydronephrosis of her solitary kidney. She was subsequently transferred to [facility] and received intravenous fluids without any improvement in her renal function. CT showed right ureteral stent, which was in good position and pigtails in the right renal pelvis and bladder, but fullness in the renal collecting system. Dr. Scott was consulted from urology, who recommended nephrostomy tube placement, which was placed by Dr. Roach of interventional radiology on 05/23/2019. The patient's creatinine significantly improved with hydration and nephrostomy tube placement from a peak of 3.29 creatinine to a discharge creatinine of 0.73 and GFR of 60. The patient was unable to care for the nephrostomy tube and therefore had to be transferred to a supervised facility. She passed a home safety evaluation. PHYSICAL EXAMINATION: On discharge: Temperature 97.3, pulse 62, respiratory rate 20, blood pressure 122/57, 97% on room air. GENERAL: The patient is awake, alert, oriented to person only. She is pleasantly confused, disoriented to time and date. She is able to speak in full sentences. Very hard of hearing. No jugular venous distention (JVD), thyromegaly. LUNGS: Clear to auscultation. No wheezing, rales or rhonchi. HEART: S1, S2. Sinus rhythm. ABDOMEN: Soft, nontender, nondistended. Positive bowel sounds. THe patient has a right nephrostomy tube intact in the lower back. EXTREMITIES: No cyanosis, clubbing or any pitting edema. DISCHARGE LABORATORIES: White count 7.1, hemoglobin 10, hematocrit 34, platelet count 285. Sodium 141, potassium 4.0, chloride 111, bicarbonate 25, BUN 50, creatinine 0.73, glucose 81, magnesium 1.6. IMAGING STUDIES: CT of the abdomen and pelvis on 05/22/2019 showed left pleural effusion, unchanged, no renal calculi, internal placement of right ureteral stent with proximal and distal pigtails in satisfactory locations, persisting hydronephrosis of the right renal calices, pelvis and proximal ureter, unchanged. Previous perinephric stranding has resolved. There are abdominal ascites surrounding the liver, spleen and in the pelvis. There is pneumobilia, unchanged. There are calcified uterine fibroids, unchanged. There is a fat containing umbilical hernia, unchanged. There is a left nephrectomy. Diverticulosis without diverticulitis. Left hip arthroplasty, unchanged. 05/21/2019, chest x-ray showed borderline heart size without danica edema, tortuous calcified aorta intact, airway intact. Curvilinear atelectasis in the periphery of the left lower lung zone with some diffuse interstitial changes, small effusion difficult to excuse, but no dense consolidation. 05/23/2019, fluoroscopic guidance nephrostogram and ureterogram demonstrate hydronephrosis and ureteral obstruction, right nephrostomy catheter placement. The patient is to [facility] 12 weeks for a catheter change. Followup with urology for cystoscopy and stent removal. Time spent on discharge: 30 minutes. Chest x-ray on 05/22/2019 showed no opacification of the right costophrenic angle, previous right upper lobe infiltrate has resolved. Blood culture negative. Respiratory panel on 05/22/2019 was negative. LABORATORY DATA: On discharge: White count 8.9, hemoglobin 14, hematocrit 47, platelet count 185. Sodium 139, potassium 3.8, chloride 92, bicarbonate 41, BUN 31, creatinine 1.47, glucose of 133. Time spent on discharge: 30 minutes. [facility]
== END 2019-05-28 13:38 | DRG 683 ==
LOC: M MSPAV 19:06
PROVIDERS: ADMIT Internal Medicine; ATTEND General Practice
PROC: 0T9030Z Drainage of Right Kidney with Drainage Device, Percutaneous Approach (ICD-10-PCS; principal; 2019-05-23 10:30)
DX: N17.9 Acute kidney failure, unspecified (principal); N39.0 Urinary tract infection, site not specified; N13.30 Unspecified hydronephrosis; R31.9 Hematuria, unspecified; F03.90 Unspecified dementia, unspecified severity, without behavioral disturbance, psychotic disturbance, mood disturbance, and anxiety; F32.9 Major depressive disorder, single episode, unspecified; I10 Essential (primary) hypertension; E03.9 Hypothyroidism, unspecified; E83.42 Hypomagnesemia; Z79.899 Other long term (current) drug therapy; Z87.891 Personal history of nicotine dependence; R26.89 Other abnormalities of gait and mobility; Z96.642 Presence of left artificial hip joint